=== PATIENT | male | born 1945 | race Caucasian/White ===

== ENCOUNTER 2017-08-28 09:41 | Observation (INO) | payer OTHER ==
[2017-08-28] VITALS (14 sets, daily range): BP systolic 119–147; BP diastolic 68–97
[~2017-08-28] VITALS: Ht 172.7 cm; Wt 73.7 kg
[~2017-08-28 09:41] MED LIST: ALPR.25T PO; ALPR0.2550 PO; ASP325T PO; CYCL10TA9 PO; HERBAL LAX; PNT40TEC PO; PRD20T PO; Z-QUIL; elavil
--- OUTSIDE RECORDS SUMMARY | 2017-08-28 09:45 | XMS REPORT | Continuity of Care Document ---
Author Author [facility] Organization [facility] Address Unknown Phone Unavailable Allergies Active Description Code Type Severity Reaction Onset Reported/Identified Relationship to Patient Clinical Status Yes No Known Drug Allergies [id number] Drug Allergy Unknown N/ A 06/03/2012 Medications Problems Date Dx Coded Attending Type Code Diagnosis Diagnosed By 06/03/2012 Ot V76.51 SCREEN MAL NEOP-COLON 07/19/2012 Ot 724.2 LUMBAGO 10/21/2012 Ot 272.4 HYPERLIPIDEMIA NEC/NOS 10/21/2012 Ot 308.0 STRESS REACT, EMOTIONAL 10/21/2012 Ot 414.01 CORONARY ATHEROSCLEROSIS OF [place] CORON 10/21/2012 Ot 531.90 STOMACH ULCER NOS 10/21/2012 Ot 786.59 CHEST PAIN NEC 10/21/2012 Ot 794.31 ABNORM ELECTROCARDIOGRAM 10/21/2012 Ot V58.66 LONG-TERM (CURRENT) USE OF ASPIRIN 12/02/2012 Ot 537.1 GASTRIC DIVERTICULUM 05/12/2016 Ot 724.2 LUMBAGO 05/12/2016 Ot 959.19 OTH INJURY OF OTHER SITES OF TRUNK 05/12/2016 Ot E000.8 OTHER EXTERNAL CAUSE STATUS 05/12/2016 Ot E849.0 ACCIDENT IN HOME 05/12/2016 Ot E928.9 ACCIDENT NOS 05/12/2016 Ot 724.3 SCIATICA 05/12/2016 Ot V72.84 EXAM PRE-OPERATIVE NOS 05/12/2016 Ot V72.84 EXAM PRE-OPERATIVE NOS 05/12/2016 JENNIFFER BURNETT MD Ot 721.3 LUMBOSACRAL SPONDYLOSIS 05/12/2016 JENNIFFER BURNETT MD Ot 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 Visit Date/Time Discharge Status Pt. Type Provider Facility Loc./Unit Complaint [id number] 01/29/2014 12:47:00 2013 23:59:59 CLS Outpatient HORTENCIA RUSSELL, JENNIFFER Haji [facility] RAD LOW BACK PAIN WITH LEFT LOWER EXT RIDICULAR PAIN [id number] 08/28/2017 09:42:00 ACT Emergency ESTHER RUSSELL , RUTH Maynard [facility] ER STROKE/FALL [id number] 12/02/2012 06:35:00 Document Registration [id number] 11/30/2012 07:44:00 Document Registration [id number] 10/18/2012 21:00:00 Document Registration [id number] 07/19/2012 08:22:00 Document Registration [id number] 06/03/2012 07:00:00 Document Registration [id number] 06/02/2012 09:47:00 Document Registration [id number] 09/09/2011 10:20:00 Document Registration [id number] 07/15/2011 14:25:00 Document Registration
[2017-08-28 09:58] LABS: BASOPHILS % (AUTO) 0 % (0-10); EOSINOPHILS # (AUTO) 0.3 10^3/uL (0.0-0.3); EOSINOPHILS % (AUTO) 3 % (0-10); LYMPHOCYTES # (AUTO) 2.1 X 10^3 (1.0-4.0); LYMPHOCYTES % (AUTO) 25 % (12-44); MEAN CORPUSCULAR HEMOGLOBIN 31 PG (25-34); MEAN CORPUSCULAR HGB CONC 34 G/DL (32-36); MEAN CORPUSCULAR VOLUME 91 FL (80-99); MEAN PLATELET VOLUME 9.1 FL (7.4-10.4); MONOCYTES # (AUTO) 0.6 X 10^3 (0.0-1.0); MONOCYTES % (AUTO) 7 % (0-12); NEUTROPHILS # (AUTO) 5.5 X 10^3 (1.8-7.8); NEUTROPHILS % (AUTO) 65 % (42-75); PLATELET COUNT 297 10^3/uL (130-400); RED BLOOD COUNT 4.43 10^6/uL (4.35-5.85); RED CELL DISTRIBUTION WIDTH 11.9 % (10.0-14.5); WHITE BLOOD COUNT 8.5 10^3/uL (4.3-11.0)
[2017-08-28 10:02] LABS: PROTHROMBIN TIME PATIENT 13.4 SEC (12.2-14.7)
--- NOTE | 2017-08-28 10:10 | Diagnostic Imaging Report ---
EXAM: CT HEAD WO-R/O STROKE INDICATION: Right-sided weakness. Facial droop. COMPARISON: None. FINDINGS: Subtle low attenuation changes and loss of the hoffman white differentiation in the left occipital lobe. No intracranial hemorrhage. No hydrocephalus, mass effect or extra-axial fluid collections. The visualized paranasal sinuses and mastoids are clear. No acute osseous findings. IMPRESSION: Low-attenuation and loss of the hoffman white differentiation in the left occipital lobe suspicious for an acute or subacute infarct. No intracranial hemorrhage. Findings discussed with Dr. Clint Curtis at 10:02 AM on 08/28/2017. Dictated by: Dictated on workstation # [id number]
--- NOTE | 2017-08-28 10:10 | Diagnostic Imaging Report ---
EXAM: CHEST 1 VIEW, AP/PA ONLY INDICATION: Right-sided weakness. Facial droop. COMPARISON: Chest radiograph 10/18/2012. FINDINGS: Normal heart size and pulmonary vascularity. No focal pulmonary opacity, pleural effusion or pneumothorax. No acute osseous findings. No significant change. IMPRESSION: No acute cardiopulmonary findings. Dictated by: Dictated on workstation # [id number]
[2017-08-28 10:13] LABS: ALANINE AMINOTRANSFERASE 18 U/L (0-55); ALBUMIN 4.2 GM/DL (3.2-4.5); ANION GAP 12 MMOL/L (5-14); ASPARTATE AMINO TRANSFERASE 20 U/L (5-34); BILIRUBIN,TOTAL 0.4 MG/DL (0.1-1.0); BLOOD UREA NITROGEN 22 MG/DL (7-18); BUN/CREATININE RATIO 17; CALCIUM 9.4 MG/DL (8.5-10.1); CARBON DIOXIDE 23 MMOL/L (21-32); CHLORIDE 104 MMOL/L (98-107); CREATININE SERUM 1.26 MG/DL (0.60-1.30); GFR ESTIMATED 56; GLUCOSE 101 MG/DL (70-105); POTASSIUM 4.7 MMOL/L (3.6-5.0); SODIUM 139 MMOL/L (135-145); TOTAL PROTEIN 7.7 GM/DL (6.4-8.2)
[2017-08-28] MEDS ORDERED: NS IV 1000 ML 1,000 ML IV ONE (10:16)
[2017-08-28 10:19] LABS: TROPONIN I < 0.30 NG/ML (<0.30)
[2017-08-28] MEDS ORDERED: CATHETER FLUSH 10 ML SYR IV PRN (10:30)
[2017-08-28] MEDS ORDERED: IOHEXOL 350 MG/ML 100 ML (OMNIPAQUE 350) VIAL IV ONE (10:30)
[2017-08-28] MEDS ORDERED: NS 100 ML (IVPB) BAG IV ONE (10:30)
--- NOTE | 2017-08-28 11:41 | Diagnostic Imaging Report ---
PROCEDURE: CT angiography of the head and CT angiography of the neck with and without contrast. TECHNIQUE: Contiguous noncontrast images were obtained from the skull base through the vertex. After intravenous contrast administration, helical CT angiography of the neck was performed. Source data was reformatted into multiple MIP projections. Delayed post contrast acquisition was also obtained. DATE: August 28, 2017. INDICATION: 72-year-old male, left-sided weakness, facial droop. COMPARISON: CT head August 28, 2017. FINDINGS: There is no identified abnormal intracranial enhancement. There is no pronounced mass effect or midline shift. There is no identified abnormal extra-axial fluid collection. The left common carotid artery is patent. The left internal carotid artery is patent and without stenosis. There are calcifications of the cavernous segment of the left internal carotid artery. There are calcifications of the proximal left anterior cerebral artery. The left anterior cerebral artery is patent. The left middle cerebral artery is patent. The right anterior cerebral artery is patent. There does appear to be a patent anterior communicating artery. There is an abrupt cutoff of contrast opacification of the right middle cerebral artery prior to its bifurcation. There is filling of the more distal aspects of the right middle cerebral artery relating to collateral flow. This likely relates to an area of occlusive thrombus. There are calcifications in the cavernous segment of the right internal carotid artery. The right internal carotid artery is patent without significant stenosis. The right common carotid artery is patent. The left vertebral artery is directly arising off the aortic arch. The left vertebral artery is patent. The basilar artery is patent. The right and left posterior cerebral arteries are patent. The right and left posterior inferior cerebellar arteries are patent. The right vertebral artery is patent and conventional in origin. The visualized portions of the lungs are clear. IMPRESSION: 1. Short segment occlusive thrombus in the right middle cerebral artery just prior to its bifurcation. There is opacification of the more distal aspects of the right middle cerebral artery relating to collateral flow. 2. Additional intracranial vasculature is patent. 3. No carotid stenosis. 4. No identified aneurysm. Dr. Curtis was notified by telephone of the above findings at 1129 hours on August 28, 2017 and acknowledged receipt of this critical result. Dictated by: Dictated on workstation # [id number]
[2017-08-28] MEDS ORDERED: ASPIRIN 325 MG (5 GR) TABLET PO ONE (11:45)
--- NOTE | 2017-08-28 12:02 | ED Neurological Problem ---
General Chief Complaint: Neuro-Stroke Like Symptoms Stated Complaint: STROKE/FALL Nursing Triage Note: TO ED PER EMS WITH POSSIBLE STROKE . PATIENT FELT LIKE HE GOT OUT OF BED AT 715 WENT TO BATHROOM HAD PROBLEMS GETTING OFF STOOL STOOD UP AND FELL AGAINST WALL . FOUND HIM AT 0845 WITH SLURRING OF SPEECH. AND FACIL Nursing Sepsis Screen: No Definite Risk Source: patient Exam Limitations: no limitations History of Present Illness Time seen by provider: 09:42 Initial Comments This 72-year-old gentleman presents to the emergency room via EMS with strokelike symptoms with last known well time 07:15. He got up to go to the restroom and while in the restroom developed left-sided weakness and lowered himself to the floor without injury. EMS reports he had profound left facial droop and loss of planning management it specialist on the left side upon their assessment. Upon arrival to the emergency room his symptoms are minor. A stroke activation has been paged. Patient has relatively little health history. He has history of prior treatment for anxiety and he has a mild essential tremor. Allergies and Home Medications Allergies Coded Allergies: No Known Drug Allergies (Unverified , 06/03/12) Home Medications Alprazolam 0.25 Mg Tab.rapdis, 1 EACH PO HS, (Reported) Pantoprazole Sod 40 Mg Tab, 40 MG PO DAILY AM, (Reported) [Herbal Lax] , (Reported) PRN FOR CONSTIPATION [Z-Quil] , (Reported) PRN FOR INSOMNIA Constitutional: no symptoms reported Eyes: No Symptoms Reported Ears, Nose, Mouth, Throat: no symptoms reported Respiratory: no symptoms reported Cardiovascular: no symptoms reported Gastrointestinal: no symptoms reported Genitourinary: no symptoms reported Musculoskeletal: no symptoms reported Skin: no symptoms reported Psychiatric/Neurological: See HPI Endocrine: No Symptoms Reported Past Ggffjqt-Bixkez-Qahyoi Hx Patient Social History Alcohol Use: Denies Use Recreational Drug Use: No Smoking Status: Never a Smoker Contact w/Someone Who Travel: No Recent Infectious Disease Expo: No Immunizations Up To Date Date of Pneumonia Vaccine: Nov 24, 2010 Date of Influenza Vaccine: Jul 04, 2012 Surgeries History of Surgeries: Yes (HERNIA REPAIR 10 YRS AGO) Surgeries: Abdominal ([id number]) Respiratory History of Respiratory Disorde: No Cardiovascular History of Cardiac Disorders: No Neurological History of Neurological Disord: Yes (essential tremor) Reproductive System Hx Reproductive Disorders: No Sexually Transmitted Disease: No Gastrointestinal History of Gastrointestinal Di: No Musculoskeletal History of Musculoskeletal Dis: No Endocrine History of Endocrine Disorders: No HEENT History of HEENT Disorders: No Cancer History of Cancer: No Psychosocial History of Psychiatric Problem: No Integumentary History of Skin or Integumenta: No Physical Exam Vital Signs Vital Sign - Last 12Hours 08/28/17 09:41 Temp 98.0 Pulse 65 Resp 18 B/P (MAP) 131/65 (87) Pulse Ox 98 O2 Delivery Room Air Capillary Refill : Less Than 3 Seconds General Appearance: WD/WN, no apparent distress HEENT: PERRL/EOMI, normal ENT inspection, pharynx normal Neck: normal inspection Respiratory: lungs clear, normal breath sounds, no respiratory distress, no accessory muscle use Cardiovascular: regular rate, rhythm, no edema, no murmur Gastrointestinal: normal bowel sounds, non tender, soft Extremities: normal inspection, no pedal edema Neurologic/Psychiatric: no motor/sensory deficits, alert, normal mood/affect, oriented x 3, facial droop (minimal left sided mouth weakness with smile) Crainal Nerves: normal hearing, normal speech, PERRL Coordination/Gait: normal finger to nose, normal gait Motor/Sensory: no motor deficit, no sensory deficit, no pronator drift Skin: normal color, warm/dry Stroke Onset of Symptoms Date of Onset of Symptoms: Aug 28, 2017 NIH Stroke Scale Assessment Select: Post CT Level of Consciousness: 0=Alert (0), Level of Consciousness- Questions: 0=Answers both month/age (0), LOC Commands: 0=Performs both tasks (0) , Gaze: Normal (0), Visual Lam: 0=No visual loss (0), Facial Movement ( Facial Paresis): 0=Normal symmetrical mnt (0), Motor Function-Arms Right: 0=No drift (0), Motor Function-Arms Left: 0=No drift (0), Motor Function-Legs Right: 0=No drift (0), Motor Function-Legs Left: 0=No drift (0), Limb Ataxia: 0=Absent (0), Sensory: 0=Normal:no loss (0), Best Language: 0=No aphasia (0), Dysarthria : 0=Normal (0), Extinction & Inattention: 0=No abnormality (0), Total: 0 Stroke Thrombolytic Exclusion Age 18 or Over: Yes Intracranial Neoplasm/Aneurysm: No Progress/Results/Core Measures Results/Orders Lab Results Laboratory Tests Test 08/28/17 09:44 08/28/17 10:19 Range/Units White Blood Count 8.5 4.3-11.0 10^3/uL Red Blood Count 4.43 4.35-5.85 10^6/uL Hemoglobin 13.8 13.3-17.7 G/DL Hematocrit 41 40-54 % Mean Corpuscular Volume 91 80-99 FL Mean Corpuscular Hemoglobin 31 25-34 PG Mean Corpuscular Hemoglobin Concent 34 32-36 G/DL Red Cell Distribution Width 11.9 10.0-14.5 % Platelet Count 297 130-400 10^3/uL Mean Platelet Volume 9.1 7.4-10.4 FL Neutrophils (%) (Auto) 65 42-75 % Lymphocytes (%) (Auto) 25 12-44 % Monocytes (%) (Auto) 7 0-12 % Eosinophils (%) (Auto) 3 0-10 % Basophils (%) (Auto) 0 0-10 % Neutrophils # (Auto) 5.5 1.8-7.8 X 10^3 Lymphocytes # (Auto) 2.1 1.0-4.0 X 10^3 Monocytes # (Auto) 0.6 0.0-1.0 X 10^3 Eosinophils # (Auto) 0.3 0.0-0.3 10^3/uL Basophils # (Auto) 0.0 0.0-0.1 10^3/uL Prothrombin Time 13.4 12.2-14.7 SEC INR Comment 1.0 0.8-1.4 Activated Partial Thromboplast Time 26 24-35 SEC D-Dimer 0.60 H 0.00-0.49 UG/ML Sodium Level 139 135-145 MMOL/L Potassium Level 4.7 3.6-5.0 MMOL/L Chloride Level 104 98-107 MMOL/L Carbon Dioxide Level 23 21-32 MMOL/L Anion Gap 12 5-14 MMOL/L Blood Urea Nitrogen 22 H 7-18 MG/DL Creatinine 1.26 0.60-1.30 MG/DL Estimat Glomerular Filtration Rate 56 BUN/Creatinine Ratio 17 Glucose Level 101 70-105 MG/DL Calcium Level 9.4 8.5-10.1 MG/DL Total Bilirubin 0.4 0.1-1.0 MG/DL Aspartate Amino Transf (AST/SGOT) 20 5-34 U/L Alanine Aminotransferase (ALT/SGPT) 18 0-55 U/L Alkaline Phosphatase 57 40-136 U/L Troponin I < 0.30 <0.30 NG/ML Total Protein 7.7 6.4-8.2 GM/DL Albumin 4.2 3.2-4.5 GM/DL Glucometer 85 70-110 MG/DL My Orders Orders - CLINT CURTIS MD Cbc With Automated Diff (08/28/17 09:48) Protime With Inr (08/28/17 09:48) Partial Thromboplastin Time (08/28/17 09:48) Comprehensive Metabolic Panel (08/28/17 09:48) Fibrin Degradation Products (08/28/17 09:48) Troponin I (08/28/17 09:48) Ua Culture If Indicated (08/28/17 09:48) Chest 1 View, Ap/Pa Only (08/28/17 09:48) Ekg Tracing (08/28/17 09:48) Nothing By Mouth (08/28/17 Lunch) Accucheck Stat ONCE (08/28/17 09:48) Saline Lock/Iv-Start (08/28/17 09:48) Saline Lock/Iv-Start (08/28/17 09:48) Vital Signs - Stroke Q15M (08/28/17 09:48) Ct Head Wo-R/O Stroke (08/28/17 09:48) O2 (08/28/17 09:48) Intake & Output 06,14,22 (08/28/17 09:48) Monitor-Rhythm Ecg Trace Only (08/28/17 09:48) Dysphagia Screening Tool (08/28/17 09:48) Ct Angio Head/Neck (08/28/17 10:16) Ns Iv 1000 Ml (Sodium Chloride 0.9%) (08/28/17 10:16) Iohexol Injection (Omnipaque 350 Mg/Ml 1 (08/28/17 10:30) Sodium Chloride Flush (Catheter Flush Sy (08/28/17 10:30) Ns (Ivpb) (Sodium Chloride 0.9% Ivpb Bag (08/28/17 10:30) Pharmacy Communication (Pharmacy Communi (08/28/17 10:21) Ekg Tracing (08/28/17 10:39) Aspirin Tablet (Aspirin Tablet) (08/28/17 11:45) Medications Given in ED Current Medications Medications Dose Ordered Sig/Farhan Route Start Time Stop Time Status Last Admin Dose Admin Aspirin 325 mg ONCE ONCE PO 08/28/17 11:45 08/28/17 11:46 DC 08/28/17 13:01 325 MG Iohexol 100 ml ONCE ONCE IV 08/28/17 10:30 08/28/17 10:31 DC 08/28/17 10:57 85 ML Sodium Chloride 10 ml NEEDED PRN IV 08/28/17 10:30 08/28/17 10:57 10 ML Sodium Chloride 100 ml ONCE ONCE IV 08/28/17 10:30 08/28/17 10:31 DC 08/28/17 10:57 80 ML Sodium Chloride 1,000 ml @ 0 mls/hr Q0M ONCE IV 08/28/17 10:16 08/28/17 10:18 DC 08/28/17 14:03 1,000 MLS/HR Vital Signs/I&O Vital Sign - Last 12Hours 08/28/17 08/28/17 09:41 11:31 Temp 98.0 Pulse 65 61 Resp 18 18 B/P (MAP) 131/65 (87) 136/78 (97) Pulse Ox 98 97 O2 Delivery Room Air Room Air Blood Pressure Mean: 97 Point of Care Testing Finger Stick Blood Glucose: 85 Blood Glucose Action Taken: DR NOTIFIED Progress Note : Progress Note Stroke activation was paged upon patient arrival. Symptoms were already markedly improving and NIH stroke score was one on initial assessment. There was low-attenuation with loss of hoffman-white differentiation in the left occipital lobe. This indicated possible acute or subacute stroke. Because there is already evidence of tissue damage, patient is not a TPA candidate especially since his symptoms are rapidly improving. Case was discussed with Dr. Milan who agreed patient is not a TPA candidate. Further workup was pursued with a CT angiogram. This revealed a right M2 MCA stroke just before the bifurcation. I again consulted Dr. Milan. He advised that helicopter transfer and invasive procedures are not worth the risk in this gentleman his symptoms have now resolved. He advised admission overnight for observation at our facility. Aspirin was ordered prior to admission. Patient passed his dysphagia screen. His first NH score was 1 for facial weakness. The second and third NIH scores were both zero. ECG Initial ECG Impression Date: Aug 28, 2017 Initial ECG Impression Time: 10:12 Initial ECG Rate: 57 Initial ECG Rhythm: Normal Sinus Initial ECG Intervals: Normal Initial ECG Impression: Normal Comment Normal sinus rhythm with no ST elevation or depression. Artifact on the baseline is deceiving and a second EKG was per him to definitively rule out atrial fibrillation. No abnormal intervals or axis deviation. Diagnostic Imaging Diagonstic Imaging: CT Plain Films/CT/US/NM/MRI: head Comments CT scans viewed by me and report reviewed. Discussed with the radiologist. There is area of low attenuation within the left occipital lobe suspicious for subacute stroke. NAME: ROBYN HASKINS MED REC#: [id number] PT STATUS: ADM Radhika : 1945 PHYSICIAN: CLINT CURTIS MD ADMIT DATE: 08/28/17/ICU Signed Date of Exam: 08/28/17 CT HEAD WO-R/O STROKE EXAM: CT HEAD WO-R/O STROKE INDICATION: Right-sided weakness. Facial droop. COMPARISON: None. FINDINGS: Subtle low attenuation changes and loss of the hoffman white differentiation in the left occipital lobe. No intracranial hemorrhage. No hydrocephalus, mass effect or extra-axial fluid collections. The visualized paranasal sinuses and mastoids are clear. No acute osseous findings. IMPRESSION: Low-attenuation and loss of the hoffman white differentiation in the left occipital lobe suspicious for an acute or subacute infarct. No intracranial hemorrhage. Findings discussed with Dr. Clint Curtis at 10:02 AM on 08/28/2017. Dictated by: Dictated on workstation # [id number] Dict: 08/28/17 1000 Trans: 08/28/171735 Interpreted by: LANDON LALA MD Electronically signed by: LANDON LALA MD 08/28/171735 Diagonstic Imaging: Xray Plain Films/CT/US/NM/MRI: chest Comments Chest x-ray viewed by me and report reviewed. See report below: NAME: ROBYN HASKINS MED REC#: [id number] PT STATUS: ADM Radhika : 1945 PHYSICIAN: CLINT CURTIS MD ADMIT DATE: 08/28/17/ICU Signed Date of Exam: 08/28/17 CHEST 1 VIEW, AP/PA ONLY EXAM: CHEST 1 VIEW, AP/PA ONLY INDICATION: Right-sided weakness. Facial droop. COMPARISON: Chest radiograph 10/18/2012. FINDINGS: Normal heart size and pulmonary vascularity. No focal pulmonary opacity, pleural effusion or pneumothorax. No acute osseous findings. No significant change. IMPRESSION: No acute cardiopulmonary findings. Dictated by: Dictated on workstation # [id number] Dict: 08/28/17 1007 Trans: 08/28/17 1734 Interpreted by: LANDON LALA MD Electronically signed by: LANDON LALA MD 08/28/17 1734 Diagonstic Imaging: CT Plain Films/CT/US/NM/MRI: other (Angiogram of head and neck) Comments CT angiogram of the head and neck viewed by me and report reviewed. Discussed with the radiologist. See report below: NAME: ROBYN HASKINS [facility] REC#: [id number] PT STATUS: ADM Radhika : 1945 PHYSICIAN: CLINT CURTIS MD ADMIT DATE: 08/28/17/ICU Signed Date of Exam: 08/28/17 CT ANGIO HEAD/NECK PROCEDURE: CT angiography of the head and CT angiography of the neck with and without contrast. TECHNIQUE: Contiguous noncontrast images were obtained from the skull base through the vertex. After intravenous contrast administration, helical CT angiography of the neck was performed. Source data was reformatted into multiple MIP projections. Delayed post contrast acquisition was also obtained. DATE: August 28, 2017. INDICATION: 72-year-old male, left-sided weakness, facial droop. COMPARISON: CT head August 28, 2017. FINDINGS: There is no identified abnormal intracranial enhancement. There is no pronounced mass effect or midline shift. There is no identified abnormal extra-axial fluid collection. The left common carotid artery is patent. The left internal carotid artery is patent and without stenosis. There are calcifications of the cavernous segment of the left internal carotid artery. There are calcifications of the proximal left anterior cerebral artery. The left anterior cerebral artery is patent. The left middle cerebral artery is patent. The right anterior cerebral artery is patent. There does appear to be a patent anterior communicating artery. There is an abrupt cutoff of contrast opacification of the right middle cerebral artery prior to its bifurcation. There is filling of the more distal aspects of the right middle cerebral artery relating to collateral flow. This likely relates to an area of occlusive thrombus. There are calcifications in the cavernous segment of the right internal carotid artery. The right internal carotid artery is patent without significant stenosis. The right common carotid artery is patent. The left vertebral artery is directly arising off the aortic arch. The left vertebral artery is patent. The basilar artery is patent. The right and left posterior cerebral arteries are patent. The right and left posterior inferior cerebellar arteries are patent. The right vertebral artery is patent and conventional in origin. The visualized portions of the lungs are clear. IMPRESSION: 1. Short segment occlusive thrombus in the right middle cerebral artery just prior to its bifurcation. There is opacification of the more distal aspects of the right middle cerebral artery relating to collateral flow. 2. Additional intracranial vasculature is patent. 3. No carotid stenosis. 4. No identified aneurysm. Dr. Curtis was notified by telephone of the above findings at 1129 hours on August 28, 2017 and acknowledged receipt of this critical result. Dictated by: Dictated on workstation # [id number] Dict: 08/28/17 1120 Trans: 08/28/17 1214 Interpreted by: SHANITA DENNIS MD Electronically signed by: SHANITA DENNIS MD 08/28/17 1214 Departure Impression Impression: Primary Impression: Acute right MCA stroke Disposition: ADMITTED INPATIENT Condition: Improved Admissions Decision to Admit Reason: Admit from ER (General) Departure-Patient Inst. Decision time for Depature: 09:50 Referrals: JENNIFFER BURNETT MD (PCP) Primary Care Physician Copy Copies To 1: JENNIFFER BURNETT MD, JOSHUA T MD Aug 28, 2017 12:02
--- NOTE | 2017-08-28 12:35 | History & Physical-Hospitalist ---
HPI History of Present Illness: HPI/Chief Complaint Pt is a 72yoCm with no PMH who presented to the ER today for left sided facial droop. He reports he woke up at 715 this morning to go to the bathroom and when he went to stand up he felt lightheaded and fell to the floor. He was down until his found him at 845. That is when she and their daughter noticed the left facial droop and left sided weakness and prompted them to seek evaluation in the ER. Upon arrival here he was activated as a code stroke. He was found to have left occipital attenuation on CT head and R MCA occlusion. By the time of his arrival his symptoms had resolved and his NIH has remained 0. He reports he feels well now and back to normal. Source: patient, family Date Seen 08/28/17 Time Seen by Provider: 11:55 Attending Physician Judith Braun MD PCP Dung Ahmadi MD Referring Physician Date of Admission Aug 28, 2017 at 11:47 am Home Medications & Allergies Home Medications Reviewed patient Home Medication Reconciliation Form Allergies Allergies Coded Allergies No Known Drug Allergies (Unverified06/03/12) Past Uvyaulo-Gcalit-Ljkpoy Hx Patient Social History Marrital Status: Alcohol Use: Denies Use Recreational Drug Use: No Smoking Status: Never a Smoker Contact w/other who traveled: No Recent Infectious Disease Expo: No Immunizations Up To Date Date of Pneumonia Vaccine: Nov 24, 2010 Date of Influenza Vaccine: Jul 04, 2012 Surgeries Yes (HERNIA REPAIR 10 YRS AGO) Respiratory No Cardiovascular No Neurological No Reproductive System Hx Reproductive Disorders: No Sexually Transmitted Disease: No Gastrointestinal No Musculoskeletal Yes (TREMORS) Endocrine History of Endocrine Disorders: No Cancer No Psychosocial History of Psychiatric Problem: No Integumentary History of Skin or Integumenta: No Family Medical History Significant Family History: No Pertinent Family Hx Review of Systems Constitutional: No chills, No fever EENTM: No blurred vision, No double vision, No nose congestion, No throat pain Respiratory: No cough, No dyspnea on exertion, No short of breath Cardiovascular: No chest pain, No edema, No palpitations Gastrointestinal: No abdominal pain, No constipation, No diarrhea, No nausea, No vomiting Genitourinary: No dysuria, No frequency Musculoskeletal: No joint pain, No muscle pain Skin: No lesions, No rash Psychiatric/Neurological: Denies Headache, Denies Numbness, Denies Tingling, Weakness (LEFT SIDED WEAKNESS), Other (FACIAL DROOP- NOW RESOLVED) Physical Exam Physical Exam Vital Signs Vital Sign - Last 12Hours 08/28/17 09:41 Temp 98.0 Pulse 65 Resp 18 B/P (MAP) 131/65 (87) Pulse Ox 98 O2 Delivery Room Air Capillary Refill : Less Than 3 Seconds General Appearance: No Apparent Distress, WD/WN HEENT: PERRL/EOMI, Moist Mucous Membranes Neck: Non Tender, Supple Respiratory: Lungs Clear, No Respiratory Distress Cardiovascular: Regular Rate, Rhythm, No Murmur Gastrointestinal: Normal Bowel Sounds, Non Tender, Soft Extremity: Normal Capillary Refill, No Calf Tenderness Neurologic/Psychiatric: Alert, Oriented x3, No Motor/Sensory Deficits, Normal 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 Short segment occlusive thrombus in the right middle cerebral artery just prior to its bifurcation. There is opacification of the more distal aspects of the right middle cerebral artery relating to collateral flow. 2. Additional intracranial vasculature is patent. 3. No carotid stenosis. 4. No identified aneurysm. Dr. Curtis was notified by telephone of the above findings at 1129 hours on August 28, 2017 and acknowledged receipt of this critical result. CT HEAD WO-R/O STROKE INDICATION: Right-sided weakness. Facial droop. COMPARISON: None. FINDINGS: Subtle low attenuation changes and loss of the hoffman white differentiation in the left occipital lobe. No intracranial hemorrhage. No hydrocephalus, mass effect or extra-axial fluid collections. The visualized paranasal sinuses and mastoids are clear. No acute osseous findings. IMPRESSION: Low-attenuation and loss of the hoffman white differentiation in the left occipital lobe suspicious for an acute or subacute infarct. No intracranial hemorrhage. Findings discussed with Dr. Clint Curtis at 10:02 AM on 08/28/2017. Assessment/Plan Admission Diagnosis Acute MCA Stroke Diagnosis/Problems Diagnosis/Problems (1) Acute right MCA stroke Status: Acute Assessment & Plan: Acute occlusion noted Dr Child consulted [facility] Stroke specialists to review his imaging They recommend no TPA as now asymptomatic along with concerns for the left sided occipital changes Dr Meneses (from [facility]) also did not recommend transfer for clot retrieval as pt asymptomatic per discussions with ER ASA given in ED Start Statin tonight PT/OT/CAMP NURSE ordered Does not smoke BP WNL Echo ordered Cardiology consulted Clinical Quality Measures Stroke: Date of last known well: Aug 28, 2017 Quality Measures-Stroke Pt: Antithrombotic therapy by EOD 2, Assessed for Rehab (PT,OT,ARU,etc), Lipid panel ordered JUDITH BRAUN MD Aug 28, 2017 12:35 pm
[2017-08-28] MEDS ORDERED: ENOXAPARIN 40 MG/0.4 ML (LOVENOX) SYR SC SCH (13:15)
[2017-08-28] MEDS ORDERED: ATORVASTATIN 80 MG (LIPITOR) TABLET PO SCH (21:00)
[2017-08-29] VITALS (10 sets, daily range): BP systolic 99–134; BP diastolic 63–84
[2017-08-29] MEDS ORDERED: ACETAMINOPHEN 500 MG TAB (TYLENOL) PO ONE (00:30)
[2017-08-29 05:11] LABS: PROTHROMBIN TIME PATIENT 13.4 SEC (12.2-14.7)
[2017-08-29 05:26] LABS: ALANINE AMINOTRANSFERASE 13 U/L (0-55); ALBUMIN 3.6 GM/DL (3.2-4.5); ANION GAP 11 MMOL/L (5-14); ASPARTATE AMINO TRANSFERASE 15 U/L (5-34); BILIRUBIN,TOTAL 0.4 MG/DL (0.1-1.0); BLOOD UREA NITROGEN 18 MG/DL (7-18); BUN/CREATININE RATIO 17; CALCIUM 8.3 MG/DL (8.5-10.1); CARBON DIOXIDE 21 MMOL/L (21-32); CHLORIDE 108 MMOL/L (98-107); CHOLESTEROL 156 MG/DL (< 200); CREATININE SERUM 1.05 MG/DL (0.60-1.30); DIRECT LDL 96 MG/DL (1-129); GFR ESTIMATED > 60; GLUCOSE 94 MG/DL (70-105); POTASSIUM 4.1 MMOL/L (3.6-5.0); SODIUM 140 MMOL/L (135-145); TOTAL PROTEIN 6.3 GM/DL (6.4-8.2); TRIGLYCERIDES 91 MG/DL (<150); VLDL CHOLESTEROL 18 MG/DL (5-40)
--- NOTE | 2017-08-29 09:26 | Consultation-Cardiology ---
HPI-Cardiology Cardiology Consultation Date of Consultation 08/29/17 Date of Admission Time Seen by Provider: 09:20 Indication: acute CVA HPI 72 years old gentleman with history of mild coronary artery disease per cardiac catheterization 2012. Was in his usual state of health until yesterday when he went to the bathroom, he was trying to get up where he couldn't he fell to the side had left sided weakness and facial droop, was in the bathroom for about an hour was not able to call for help, and was found by his and daughter, had facial droop, EMS were called. By the time he arrived to the emergency room he was better and recovered. Overnight he was doing well, no residual weakness. Fairly concerned about his condition and the cause for his stroke. CT angiogram showed occlusive thrombus in the right middle cerebral artery of unknown source. He denied any chest pain, denied any palpitation, syncope or near syncopal episode, his sister had history of atrial fibrillation. Home Medications & Allergies Allergies: Coded Allergies: No Known Drug Allergies (Unverified , 06/03/12) Home Medication List Reviewed: Yes [id number]-[id number] Hx Patient Social History Marital Status: Alcohol Use: Denies Use Recreational Drug Use: No Smoking Status: Never a Smoker Recent Foreign Travel: No Recent Infectious Disease Expo: No Physical Abuse Screen: No Sexual Abuse: No Immunizations Up To Date Date of Pneumonia Vaccine: Aug 28, 2015 Date of Influenza Vaccine: Jul 19, 2017 Past Medical History past medical history as discussed below Family Medical History Significant Family History: No Pertinent Family Hx Family Medical Hx Sister has history of atrial fibrillation Constitutional: no symptoms reported, see HPI EENTM: see HPI, no symptoms reported Respiratory: see HPI, No cough, No dyspnea on exertion, No hemoptysis, No orthopnea, No phlegm, No short of breath, No stridor, No wheezing, No other Cardiovascular: see HPI, No chest pain, No edema, No Hx of Intervention, No palpitations, No syncope, No vascular heart diseas, No other Gastrointestinal: no symptoms reported, see HPI Genitourinary: no symptoms reported, see HPI Musculoskeletal: no symptoms reported, see HPI Skin: no symptoms reported, see HPI Psychiatric/Neurological: No Symptoms Reported, See HPI, Numbness, Paresthesia , Weakness Reviewed Test Results Reviewed Test Results Lab Laboratory Tests Test 12/9/17 09:44 08/28/17 10:19 08/29/17 04:30 Range/Units White Blood Count 8.5 4.3-11.0 10^3/uL Red Blood Count 4.43 4.35-5.85 10^6/uL Hemoglobin 13.8 13.3-17.7 G/DL Hematocrit 41 40-54 % Mean Corpuscular Volume 91 80-99 FL Mean Corpuscular Hemoglobin 31 25-34 PG Mean Corpuscular Hemoglobin Concent 34 32-36 G/DL Red Cell Distribution Width 11.9 10.0-14.5 % Platelet Count 297 130-400 10^3/uL Mean Platelet Volume 9.1 7.4-10.4 FL Neutrophils (%) (Auto) 65 42-75 % Lymphocytes (%) (Auto) 25 12-44 % Monocytes (%) (Auto) 7 0-12 % Eosinophils (%) (Auto) 3 0-10 % Basophils (%) (Auto) 0 0-10 % Neutrophils # (Auto) 5.5 1.8-7.8 X 10^3 Lymphocytes # (Auto) 2.1 1.0-4.0 X 10^3 Monocytes # (Auto) 0.6 0.0-1.0 X 10^3 Eosinophils # (Auto) 0.3 0.0-0.3 10^3/uL Basophils # (Auto) 0.0 0.0-0.1 10^3/uL Prothrombin Time 13.4 13.4 12.2-14.7 SEC INR Comment 1.0 1.0 0.8-1.4 Activated Partial Thromboplast Time 26 24-35 SEC D-Dimer 0.60 H 0.00-0.49 UG/ML Sodium Level 139 140 135-145 MMOL/L Potassium Level 4.7 4.1 3.6-5.0 MMOL/L Chloride Level 104 108 H 98-107 MMOL/L Carbon Dioxide Level 23 21 21-32 MMOL/L Anion Gap 12 11 5-14 MMOL/L Blood Urea Nitrogen 22 H 18 7-18 MG/DL Creatinine 1.26 1.05 0.60-1.30 MG/DL Estimat Glomerular Filtration Rate 56 > 60 BUN/Creatinine Ratio 17 17 Glucose Level 101 94 70-105 MG/DL Calcium Level 9.4 8.3 L 8.5-10.1 MG/DL Total Bilirubin 0.4 0.4 0.1-1.0 MG/DL Aspartate Amino Transf (AST/SGOT) 20 15 5-34 U/L Alanine Aminotransferase (ALT/SGPT) 18 13 0-55 U/L Alkaline Phosphatase 57 48 40-136 U/L Troponin I < 0.30 <0.30 NG/ML Total Protein 7.7 6.3 L 6.4-8.2 GM/DL Albumin 4.2 3.6 3.2-4.5 GM/DL Glucometer 85 70-110 MG/DL Triglycerides Level 91 <150 MG/DL Cholesterol Level 156 < 200 MG/DL LDL Cholesterol Direct 96 1-129 MG/DL VLDL Cholesterol 18 5-40 MG/DL HDL Cholesterol 44 40-60 MG/DL Physical Exam Vital Signs Vital Sign - Last 12Hours 08/28/17 09:41 Temp 98.0 Pulse 65 Resp 18 B/P (MAP) 131/65 (87) Pulse Ox 98 O2 Delivery Room Air Capillary Refill : Less Than 3 Seconds General Appearance: No Apparent Distress, WD/WN Eyes: Bilateral Eye Normal Inspection, Bilateral Eye PERRL, Bilateral Eye EOMI HEENT: PERRL/EOMI, TMs Normal, Normal ENT Inspection, Pharynx Normal Neck: Full Range of Motion, Normal Inspection, Non Tender, Supple, Carotid Bruit Respiratory: Chest Non Tender, Lungs Clear, Normal Breath Sounds, No Accessory Muscle Use, No Respiratory Distress Cardiovascular: Regular Rate, Rhythm, No Edema, No Gallop, No JVD, No Murmur, Normal Peripheral Pulses Gastrointestinal: Normal Bowel Sounds, No Organomegaly, No Pulsatile Mass, Non Tender, Soft Back: Normal Inspection, No CVA Tenderness, No Vertebral Tenderness Extremity: Normal Capillary Refill, Normal Inspection, Normal Range of Motion, Non Tender, No Calf Tenderness, No Pedal Edema Neurologic/Psychiatric: Alert, Oriented x3, No Motor/Sensory Deficits, Normal Mood/Affect Skin: Normal Color, Warm/Dry Lymphatic: No Adenopathy A/P-Cardiology Admission Diagnosis Acute CVA Coronary artery disease Family history of atrial fibrillation Assessment/Plan Acute CVA, right middle cerebral artery occlusion with a thrombus, unknown source, cryptogenic stroke. Monitored on telemetry overnight, did not show any arrhythmia except for frequent PVCs. Echocardiogram showed normal left ventricular size and function, ejection fraction 65-70 percent, PA pressure 25 mmHg. Had a long discussion with the patient and his family regarding the source of stroke, embolic versus atherosclerotic, and his condition it appear to be embolic. There is an increased risk of atrial fibrillation as a source. I recommended reveal device implantation. We will schedule it as an outpatient meanwhile he is maintained on aspirin. History of cardiac catheterization done in 2012 showing mild coronary artery disease nonobstructive disease. Continue to monitor as an outpatient Patient had life screen done for his carotid and legs and he was told it was normal. Lipid profile showed total cholesterol of 156, LDL 96, Triglyceride 91, LDL 44. We had a long discussion about diet control and exercise. Patient exercise daily with 2 miles walk. Family history of atrial fibrillation Clinical Quality Measures DVT/VTE Risk/Contraindication: Risk Factor Score Per Nursin RFS Level Per Nursing on Admit: 4+=Very High Stroke: Date of last known well: Aug 28, 2017 Quality Measures-Stroke Pt: Antithrombotic therapy by EOD 2, Assessed for Rehab (PT,OT,ARU,etc), Lipid panel ordered DANIELLE SHIPLEY MD Aug 29, 2017 09:26
--- NOTE | 2017-08-29 09:27 | Discharge Summary-Hospitalist ---
Diagnosis/Chief Complaint Date of Admission Aug 28, 2017 at 11:47 am Date of Discharge Discharge Date: Aug 29, 2017 Admission Diagnosis Acute MCA Stroke Discharge Diagnosis (1) Acute right MCA stroke Status: Acute Assessment & Plan: Acute occlusion noted Dr Child consulted [facility] Stroke specialists to review his imaging They recommend no TPA or anticoagulation as now asymptomatic along with concerns for the left sided occipital changes Dr Meneses (from [facility]) also did not recommend transfer for clot retrieval as pt asymptomatic per discussions with ER Continue ASA Statin ordered, patient unsure if he will start it PT/OT/CV/CVN CV TSC SYSTEM OPERATOR ordered Does not smoke BP WNL Echo- unremarkable Telemetry revealed only PVCs overnight Cardiology consulted Scheduled for outpatient loop recorder on Wednesday to further evaluation cryptogenic stroke Discharge Summary Consultations Cardiology- Dr Willis Discharge Physical Examination Allergies: Coded Allergies: No Known Drug Allergies (Unverified , 06/03/12) Vitals & I&Os Vital Signs Date Time Temp Pulse Resp B/P (MAP) Pulse Ox O2 Delivery O2 Flow Rate FiO2 08/29/17 10:25 56 17 134/84 95 Room Air 08/29/17 04:15 97.7 Hospital Course Pt presented to the ER for acute onset left facial droop and weakness. In evaluation in the ER it was revealed that he had an acute MCA occlusion. [facility] Stroke Center was contacted and given that his symptoms had completely resolved shortly after arrival they recommended no further intervention or TPA. He was started on ASA and statin while inpatient and will be discharged on these. Cardiology was consulted and will implant reveal device on 09/01 for further evaluation. He is to follow up with his PCP this week. Labs (last 24 hrs) Laboratory Tests 08/29/17 04:30: Prothrombin Time 13.4, INR Comment 1.0, Sodium Level 140, Potassium Level 4.1, Chloride Level 108H, Carbon Dioxide Level 21, Anion Gap 11, Blood Urea Nitrogen 18, Creatinine 1.05, Estimat Glomerular Filtration Rate > 60, BUN/Creatinine Ratio 17, Glucose Level 94, Calcium Level 8.3L, Total Bilirubin 0.4, Aspartate Amino Transf (AST/SGOT) 15, Alanine Aminotransferase (ALT/SGPT) 13, Alkaline Phosphatase 48, Total Protein 6.3L, Albumin 3.6, Triglycerides Level 91, Cholesterol Level 156, LDL Cholesterol Direct 96, VLDL Cholesterol 18, HDL Cholesterol 44 Pending Labs Laboratory Tests 08/29/17 04:30: Prothrombin Time 13.4, INR Comment 1.0, Sodium Level 140, Potassium Level 4.1, Chloride Level 108, Carbon Dioxide Level 21, Anion Gap 11, Blood Urea Nitrogen 18, Creatinine 1.05, Estimat Glomerular Filtration Rate > 60, BUN/Creatinine Ratio 17, Glucose Level 94, Calcium Level 8.3, Total Bilirubin 0.4, Aspartate Amino Transf (AST/SGOT) 15, Alanine Aminotransferase (ALT/SGPT) 13, Alkaline Phosphatase 48, Total Protein 6.3, Albumin 3.6, Triglycerides Level 91, Cholesterol Level 156, LDL Cholesterol Direct 96, VLDL Cholesterol 18, HDL Cholesterol 44 Discussion & Recommendations I recommended statin for secondary prevention as LDL >70 (LDL 96). He would like to wait until he sees Dr. Willis again to decide whether he will start it. Discharge Home Medications: Active Scripts Active Atorvastatin Calcium 40 Mg Tablet 40 Mg PO DAILY 30 Days Aspirin EC (Aspirin) 325 Mg Tablet. 325 Mg PO Q24H Reported Alprazolam 0.25 Mg Tab.rapdis 1 Each PO HS Protonix Tab (Pantoprazole Sod) 40 Mg Tab 40 Mg PO DAILY AM [Z-Quil] PRN FOR INSOMNIA [Herbal Lax] PRN FOR CONSTIPATION Instructions to patient/family Please see electronic discharge instructions given to patient. Clinical Quality Measures DVT/VTE Risk/Contraindication: Risk Factor Score Per Nursin RFS Level Per Nursing on Admit: 4+=Very High Stroke: Date of last known well: Aug 28, 2017 Quality Measures-Stroke Pt: Antithrombotic therapy by EOD 2, Assessed for Rehab (PT,OT,ARU,etc), D/C'd on Antithrombotic, D/C'd on statin (for LDL>=70), Lipid panel ordered Copy Copies To 1: JENNIFFER BURNETT MD, KATELYN M MD Aug 29, 2017 09:27
[2017-08-29] MEDS ORDERED: ASPI325T32 PO (09:41)
[2017-08-29] MEDS ORDERED: ATOR40TA70 PO (09:41)
[2017-08-29] MEDS ORDERED: ASPIRIN E.C. 325 MG (ECOTRIN) TABLET PO SCH (13:15)
--- NOTE | 2017-08-30 08:21 | Speech Therapy Progress Note ---
Therapy Progress Note Speech evaluation received and chart reviewed. The patient discharged prior to evaluation. ADRIEL GARSIA Aug 30, 2017 08:21
[2017-08-30] MEDS ORDERED: PANT40TA2 PO (11:11)
[2017-08-30] MEDS ORDERED: ONDA4TAB11 PO (11:11)
== END 2017-08-29 10:25 | disposition home or self-care (01) ==
LOC: EDUNIT# 09:41 → ER 09:42 → ICU 11:47
PROVIDERS: ADMIT Family Medicine; ATTEND Family Medicine
DX: I63.412 Cerebral infarction due to embolism of left middle cerebral artery (principal); R29.810 Facial weakness; R29.898 Other symptoms and signs involving the musculoskeletal system; I25.10 Atherosclerotic heart disease of native coronary artery without angina pectoris; G25.0 Essential tremor; Z82.49 Family history of ischemic heart disease and other diseases of the circulatory system; Z79.899 Other long term (current) drug therapy
CPT/HCPCS: 36415; 70450; 70496; 70498; 71010; 80053; 80061; 82962; 84484; 85025; 85379; 85610; 85730; 93005; 93041; 93306

== ENCOUNTER 2017-08-30 08:46 | Emergency (ER) | payer OTHER ==
[~2017-08-30] VITALS: Ht 172.7 cm; Wt 73.7 kg
[~2017-08-30 08:46] MED LIST changes: +ASPI325T32 PO; +ATOR40TA70 PO
[2017-08-30] MEDS ORDERED: PANTOPRAZOLE 40 MG/10 ML (PROTONIX) VIAL IV ONE (09:30)
[2017-08-30 09:36] LABS: BASOPHILS % (AUTO) 0 % (0-10); EOSINOPHILS # (AUTO) 0.1 10^3/uL (0.0-0.3); EOSINOPHILS % (AUTO) 1 % (0-10); LYMPHOCYTES # (AUTO) 1.1 X 10^3 (1.0-4.0); LYMPHOCYTES % (AUTO) 18 % (12-44); MEAN CORPUSCULAR HEMOGLOBIN 31 PG (25-34); MEAN CORPUSCULAR HGB CONC 33 G/DL (32-36); MEAN CORPUSCULAR VOLUME 92 FL (80-99); MEAN PLATELET VOLUME 8.5 FL (7.4-10.4); MONOCYTES # (AUTO) 0.5 X 10^3 (0.0-1.0); MONOCYTES % (AUTO) 7 % (0-12); NEUTROPHILS # (AUTO) 4.6 X 10^3 (1.8-7.8); NEUTROPHILS % (AUTO) 73 % (42-75); PLATELET COUNT 274 10^3/uL (130-400); RED BLOOD COUNT 4.29 10^6/uL (4.35-5.85); RED CELL DISTRIBUTION WIDTH 11.8 % (10.0-14.5); WHITE BLOOD COUNT 6.3 10^3/uL (4.3-11.0)
--- NOTE | 2017-08-30 09:37 | ED GI ---
General Chief Complaint: Abdominal/GI Problems Stated Complaint: NAUSEA Nursing Triage Note: PT C/O NAUSEA AND DIFFUSE ABD CRAMPING. HE DENIES VOMITING OR DIARRHEA. PT WAS ADMITTED TO THIS HOSPITAL AND DC'D YESTERDAY FOR TIA. PT HAS HX OF ULCER. Sepsis Screen: No Definite Risk Source of Information: Patient Exam Limitations: No Limitations History of Present Illness Time Seen By Provider: 09:05 Initial Comments Here with complaint of diffuse abdominal cramping. No vomiting or diarrhea. States it's in the epigastric region. He was in the hospital this weekend for TIA that occurred Wednesday. He was started on aspirin. Patient states that he has self diagnosed ulcers and this feels like that is acting up. He did have episode a couple weeks ago of vomiting and diarrhea. Not Exactly sure what is going on. He called his doctor's office for appointment and they instructed him to come here for further evaluation. He has not taken his aspirin today. He is currently on full dose aspirin. He has follow-up with the heart on Wednesday. Denies bloody stool. He has not had bowel movement since leaving the hospital or since the initial incident on Wednesday. Timing/Duration: 1-3 Hours Severity/Quality: Moderate Location: Epigastric Radiation: No Radiation Activities at Onset: None Modifying Factors: Improves With Resting Associated Symptoms: No Back Pain, No Chest Pain, No Fever/Chills, No Shortness of Air, No Weakness Allergies and Home Medications Allergies Coded Allergies: No Known Drug Allergies (Unverified , 06/03/12) Home Medications Alprazolam 0.25 Mg Tab.avdis, 1 EACH PO HS, (Reported) Aspirin 325 Mg , 325 MG PO Q24H, #30 Prescribed by: HINA KUMAR on 08/29/17 0941 Atorvastatin Calcium 40 Mg Tablet, 40 MG PO DAILY for 30 Days, #30 Prescribed by: HINA KUMAR on 08/29/17 0941 Pantoprazole Sod 40 Mg Tab, 40 MG PO DAILY AM, (Reported) [Herbal Lax] , (Reported) PRN FOR CONSTIPATION [Z-Quil] , (Reported) PRN FOR INSOMNIA Review of Systems Constitutional: see HPI EENTM: No Symptoms Reported Respiratory: No Symptoms Reported Cardiovascular: No Symptoms Reported Gastrointestinal: See HPI, Abdominal Pain (cramping like you can have diarrhea) , Nausea, Denies Vomiting Genitourinary: No Symptoms Reported Musculoskeletal: no symptoms reported Skin: no symptoms reported All Other Systems Reviewed Negative Unless Noted: Yes Past Lshqdxs-Okudar-Yydoyo Hx Patient Social History Alcohol Use: Denies Use Recreational Drug Use: No Smoking Status: Never a Smoker 2nd Hand Smoke Exposure: No Recent Foreign Travel: No Contact w/Someone Who Travel: No Recent Infectious Disease Expo: No Recent Hopitalizations: Yes (TIA 08/28/17) Physical Abuse: No Sexual Abuse: No Immunizations Up To Date Date of Pneumonia Vaccine: Aug 28, 2015 Date of Influenza Vaccine: Jul 19, 2017 Seasonal Allergies Seasonal Allergies: No Surgeries History of Surgeries: Yes (HERNIA REPAIR 10 YRS AGO) Surgeries: Abdominal Respiratory History of Respiratory Disorde: No Cardiovascular History of Cardiac Disorders: No Neurological History of Neurological Disord: Yes (essential tremor) Reproductive System Hx Reproductive Disorders: No Sexually Transmitted Disease: No Genitourinary History of Genitourinary Disor: No Gastrointestinal History of Gastrointestinal Di: No Musculoskeletal History of Musculoskeletal Dis: No Endocrine History of Endocrine Disorders: No HEENT History of HEENT Disorders: No Cancer History of Cancer: No Psychosocial History of Psychiatric Problem: No Suicide Risk Score: 0 Integumentary History of Skin or Integumenta: No Blood Transfusions History of Blood Disorders: No Adverse Reaction to a Blood Tr: No Reviewed Nursing Assessment Reviewed/Agree w Nursing PMH: Yes Family Medical History Significant Family History: No Pertinent Family Hx Physical Exam Vital Signs VS - Last 72 Hours, by Label 08/30/17 09:00 Temp 98.1 Pulse 64 Resp 18 B/P (MAP) 152/87 (108) Pulse Ox 98 O2 Delivery Room Air Capillary Refill : Less Than 3 Seconds General Appearance: WD/WN, no apparent distress HEENT: PERRL/EOMI, pharynx normal Neck: full range of motion, supple Respiratory: lungs clear, normal breath sounds Cardiovascular: regular rate, rhythm, no murmur Peripheral Pulses: 2+ Dorsalis Pedis (R), 2+ Left Dors-Pedis (L), 2+ Radial Pulses (R), 2+ Radial Pulses (L) Gastrointestinal: non tender, soft Extremities: non-tender, normal inspection Back: normal inspection, no CVA tenderness, no vertebral tenderness Neurologic/Psychiatric: alert, oriented x 3 Skin: normal color, warm/dry Progress/Results/Core Measures Results/Orders Lab Results Laboratory Tests Test 08/30/17 09:25 Range/Units White Blood Count 6.3 4.3-11.0 10^3/uL Red Blood Count 4.29 L 4.35-5.85 10^6/uL Hemoglobin 13.1 L 13.3-17.7 G/DL Hematocrit 39 L 40-54 % Mean Corpuscular Volume 92 80-99 FL Mean Corpuscular Hemoglobin 31 25-34 PG Mean Corpuscular Hemoglobin Concent 33 32-36 G/DL Red Cell Distribution Width 11.8 10.0-14.5 % Platelet Count 274 130-400 10^3/uL Mean Platelet Volume 8.5 7.4-10.4 FL Neutrophils (%) (Auto) 73 42-75 % Lymphocytes (%) (Auto) 18 12-44 % Monocytes (%) (Auto) 7 0-12 % Eosinophils (%) (Auto) 1 0-10 % Basophils (%) (Auto) 0 0-10 % Neutrophils # (Auto) 4.6 1.8-7.8 X 10^3 Lymphocytes # (Auto) 1.1 1.0-4.0 X 10^3 Monocytes # (Auto) 0.5 0.0-1.0 X 10^3 Eosinophils # (Auto) 0.1 0.0-0.3 10^3/uL Basophils # (Auto) 0.0 0.0-0.1 10^3/uL Sodium Level 139 135-145 MMOL/L Potassium Level 4.4 3.6-5.0 MMOL/L Chloride Level 103 98-107 MMOL/L Carbon Dioxide Level 28 21-32 MMOL/L Anion Gap 8 5-14 MMOL/L Blood Urea Nitrogen 17 7-18 MG/DL Creatinine 1.28 0.60-1.30 MG/DL Estimat Glomerular Filtration Rate 55 BUN/Creatinine Ratio 13 Glucose Level 95 70-105 MG/DL Calcium Level 9.7 8.5-10.1 MG/DL Total Bilirubin 0.7 0.1-1.0 MG/DL Aspartate Amino Transf (AST/SGOT) 20 5-34 U/L Alanine Aminotransferase (ALT/SGPT) 18 0-55 U/L Alkaline Phosphatase 54 40-136 U/L Troponin I < 0.30 <0.30 NG/ML Total Protein 7.5 6.4-8.2 GM/DL Albumin 4.2 3.2-4.5 GM/DL Lipase 28 8-78 U/L My Orders Orders - KANDIS STRAUSS MD Cbc With Automated Diff (08/30/17 09:16) Comprehensive Metabolic Panel (08/30/17 09:16) Lipase (08/30/17 09:16) Troponin I (08/30/17 09:16) Saline Lock/Iv-Start (08/30/17 09:16) Ekg Tracing (08/30/17 09:16) Pantoprazole Injection (Protonix Injecti (08/30/17 09:30) Medications Given in ED Current Medications Medications Dose Ordered Sig/Farhan Route Start Time Stop Time Status Last Admin Dose Admin Pantoprazole 40 mg ONCE ONCE IV 08/30/17 09:30 08/30/17 09:31 DC 08/30/17 09:34 40 MG Vital Signs/I&O Vital Sign - Last 12Hours 08/30/17 09:00 Temp 98.1 Pulse 64 Resp 18 B/P (MAP) 152/87 (108) Pulse Ox 98 O2 Delivery Room Air Blood Pressure Mean: 108 Progress Note : Progress Note Seen and evaluated. IV, labs, EKG, Protonix 40 mg IV ordered. Monitor patient. 1100: I did discuss the case with Dr. Burnett. Patient is doing okay currently. Labs reviewed and compared to previous. His significant changes. We will continue Protonix as outpatient and decrease aspirin to 81 mg daily. He 'll follow-up with Dr. Burnett on Wednesday with likely upper endoscopy on Wednesday. This was discussed with patient and family who agree. Discharged home with return precautions. Patient verbalize understanding instructions and agreement with plan. ECG Initial ECG Impression Date: Aug 30, 2017 Initial ECG Impression Time: 09:18 Initial ECG Rate: 59 Initial ECG Rhythm: Normal Sinus Comment Sinus rhythm with normal axis. No evidence of ST elevation [place]. Similar to previous of 08/28/17. Interpreted by me. Departure Impression Impression: Primary Impression: Epigastric abdominal pain Disposition: 01 HOME, SELF-CARE Condition: Stable Departure-Patient Inst. Decision time for Depature: 11:10 Referrals: JENNIFFER BURNETT MD (PCP/Family) Primary Care Physician Patient Instructions: Acute Abdomen (Belly Pain), Adult (DC), Peptic Ulcers (DC ) Add. Discharge Instructions: All discharge instructions reviewed with patient and/or family. Voiced understanding. Eat a light diet for the next few days. Follow-up with Dr. Burnett on Wednesday. Call his office today for appointment. Return for worse pain, fever , vomiting, weakness, breathing problems or other concerns as needed. Decrease aspirin to 81 mg daily. Take other medications as directed. Scripts Ondansetron (Ondansetron Odt) 4 Mg Tab.rapdis 4 MG PO Q6H Y for NAUSEA/VOMITING, #8 TAB 0 Refills Prov: KANDIS STRAUSS MD 08/30/17 Pantoprazole Sodium (Protonix) 40 Mg Tablet. 40 MG PO DAILY for 30 Days, #30 TAB Prov: KANDIS STRAUSS MD 08/30/17 Copy Copies To 1: JENNIFFER BURNETT MD, TIMOTHY D MD Aug 30, 2017 09:37
[2017-08-30 10:00] LABS: ALANINE AMINOTRANSFERASE 18 U/L (0-55); ALBUMIN 4.2 GM/DL (3.2-4.5); ANION GAP 8 MMOL/L (5-14); ASPARTATE AMINO TRANSFERASE 20 U/L (5-34); BILIRUBIN,TOTAL 0.7 MG/DL (0.1-1.0); BLOOD UREA NITROGEN 17 MG/DL (7-18); BUN/CREATININE RATIO 13; CALCIUM 9.7 MG/DL (8.5-10.1); CARBON DIOXIDE 28 MMOL/L (21-32); CHLORIDE 103 MMOL/L (98-107); CREATININE SERUM 1.28 MG/DL (0.60-1.30); GFR ESTIMATED 55; GLUCOSE 95 MG/DL (70-105); LIPASE 28 U/L (8-78); POTASSIUM 4.4 MMOL/L (3.6-5.0); SODIUM 139 MMOL/L (135-145); TOTAL PROTEIN 7.5 GM/DL (6.4-8.2)
[2017-08-30 10:07] LABS: TROPONIN I < 0.30 NG/ML (<0.30)
[2017-08-30] MEDS ORDERED: PANT40TA2 PO (11:11)
[2017-08-30] MEDS ORDERED: ONDA4TAB11 PO (11:11)
[2017-08-30 11:15] VITALS: BP 152/87
== END 2017-08-30 11:15 | disposition home or self-care (01) ==
LOC: EDUNIT# 08:46 → ER 08:48
DX: R10.13 Epigastric pain (principal); Z86.73 Personal history of transient ischemic attack (TIA), and cerebral infarction without residual deficits; Z87.19 Personal history of other diseases of the digestive system; Z79.82 Long term (current) use of aspirin
CPT/HCPCS: 36415; 80053; 83690; 84484; 85025; 93005

== ENCOUNTER → 2017-09-01 | Day surgery (SDC) | payer OTHER ==
[~2017-09-01] VITALS: Ht 172.7 cm; Wt 73.7 kg
[~2017-09-01] MED LIST changes: +ALPR0.254 PO; +ASPI-586 PO; +LIDOCAINE 1% INJ 50 ML (XYLOCAINE) VIAL ONE; +ONDA4TAB11 PO; +PANT40TA2 PO; +PANT40TA3 PO
[2017-09-01 10:29] VITALS: BP 134/75
--- NOTE | 2017-09-01 12:28 | OPERATIVE REPORT ---
DATE OF SERVICE: 09/01/2017 PROCEDURE PERFORMED: Reveal device implantation. BRIEF HISTORY: The patient is a 72-year-old gentleman with history of hypertension. Admitted with acute CVA. It appears to be embolic with a thrombus in the right middle cerebral artery. No source of embolization was noted. It is considered cryptogenic stroke. He was scheduled for a Reveal device implantation. He was monitored on telemetry for over 24 hours without arrhythmia. Echocardiogram did not show significant abnormality or source of embolization. PROCEDURE NOTE: After explaining the procedure to the patient all pros and cons were explained. All questions were answered. The patient signed a consent and he was placed in the holding area, no sedation was needed. Local anesthesia applied. Skin incision was made. Then a Reveal LINQ with serial [id number] implanted subcutaneously, manual pressure applied and Dermabond applied. No complication noted. CONCLUSION: Successful Reveal device implantation with no complication. FINAL DIAGNOSES: 1. Cryptogenic stroke. 2. Thrombus in the right middle cerebral artery. 3. Hypertension. Job ID: [id number] DocumentID: [id number] Dictated Date: 09/01/2017 11:08:30 Personal Care Home Administrator Date: 09/01/2017 12:27:24 Dictated By: DANIELLE SHIPLEY MD
== END | disposition home or self-care (01) ==
LOC: CATH 10:01
PROVIDERS: ATTEND Internal Medicine Cardiovascular Disease
DX: I63.412 Cerebral infarction due to embolism of left middle cerebral artery (principal); I10 Essential (primary) hypertension
CPT/HCPCS: 33282

== ENCOUNTER 2017-09-02 06:19 | Outpatient (CLI) | payer OTHER ==
[~2017-09-02] VITALS: Ht 172.7 cm; Wt 73.5 kg
[~2017-09-02 06:19] MED LIST changes: -ALPR0.254 PO; -ASPI-586 PO; -LIDOCAINE 1% INJ 50 ML (XYLOCAINE) VIAL ONE; -PANT40TA3 PO
[2017-09-02] MEDS ORDERED: ALPR0.254 PO (09:51)
[2017-09-02] MEDS ORDERED: PANT40TA3 PO (09:51)
[2017-09-02] MEDS ORDERED: ASPI-586 PO (09:51)
== END 2017-09-02 10:23 ==
LOC: PREOP 06:19
PROVIDERS: ATTEND Internal Medicine
DX: Z01.818 Encounter for other preprocedural examination (principal); R10.13 Epigastric pain

== ENCOUNTER 2017-09-03 08:23 | Day surgery (SDC) | payer OTHER ==
[~2017-09-03] VITALS: Ht 172.7 cm; Wt 73.5 kg
--- NOTE | 2017-09-03 05:00 | HISTORY AND PHYSICAL ---
DATE OF SERVICE: EGD HISTORY AND PHYSICAL DATE OF ADMISSION: 09/03/2017. HISTORY OF PRESENT ILLNESS: The patient is a 72-year-old white male, who reports he has been having increased belching and epigastric discomfort for the past month. He stopped taking his prophylactic aspirin. He reports his symptoms were similar to a previous history when peptic ulcer disease was diagnosed after EGD evaluation. He got up to go to the bathroom Wednesday morning, he was unable to get up from the commode secondary to left-sided weakness. He sat there for an hour before he could summon help. He was brought to the emergency room where he was noted to have a left MCA thrombus. Symptoms resolved within 2 hours completely and did not require any form of therapy other than full strength aspirin. He was admitted overnight and discharged the following day after neurologic consultation at . He did undergo Reveal device placement to rule out paroxysmal atrial fibrillation, he had no significant carotid disease on CTA and echocardiography was unremarkable as well. He returned to the emergency room with nausea on Wednesday, I discussed his case with the emergency room physician, advised decreasing his aspirin to baby aspirin and initiating pantoprazole. Today, he was able to keep some solids down for the first time in 48 hours, although he is still belching and still has some epigastric discomfort. He denies dysphagia, melena or bright red blood per rectum. He denies any radiation of pain and emergency room labs including lipase were evaluated and were unremarkable. PHYSICAL EXAMINATION: GENERAL: Reveals a somewhat anxious-appearing white male, otherwise in no acute distress. Skin and conjunctivae revealed no evidence for pallor. VITAL SIGNS: His weight was down 8.6 pounds from 9 months ago. Blood pressure 122/70. CHEST: Clear. CARDIOVASCULAR: Revealed a regular rate and rhythm without murmur, S3 or S4. NECK: Revealed no JVD, adenopathy or bruits. ABDOMEN: Soft, supple. Epigastric discomfort to palpation was present without rebound or guarding. No mass or organomegaly is noted. Bowel sounds are noted in all four quadrants, no bruits are appreciated. ASSESSMENT AND PLAN: 1. Epigastric pain, nausea, suspicious for recurrent peptic ulcer disease. The patient was advised to continue pantoprazole and after discussion, is set up for EGD on 09/03, this Wednesday. 2. Recent right middle cerebral artery thrombus with associated TIA; in addition, neuro evaluation was unremarkable today with normal left-sided strength. The patient is right handed and reported no speech difficulty. Tentatively, we will have him follow up in one month, but considering recent thrombus and high risk for CVA, continue baby aspirin daily with pantoprazole 40 mg daily. Job ID: [id number] DocumentID: [id number] Dictated Date: 09/01/2017 17:21:36 Production Department Supervisor Date: 09/01/2017 17:49:36 Dictated By: JENNIFFER BURNETT MD
[~2017-09-03 08:23] MED LIST changes: +ALPR0.254 PO; +ASPI-586 PO; +PANT40TA3 PO
--- OUTSIDE RECORDS SUMMARY | 2017-09-03 08:27 | XMS REPORT | Continuity of Care Document ---
Author Author [facility] Organization [facility] Address Unknown Phone Unavailable Allergies Active Description Code Type Severity Reaction Onset Reported/Identified Relationship to Patient Clinical Status Yes No Known Drug Allergies [id number] Drug Allergy Unknown N/A 06/03/2012 Medications There is no data. Problems Date Dx Coded Attending Type Code Diagnosis Diagnosed By 06/03/2012 Ot V76.51 SCREEN MAL NEOP-COLON 07/19/2012 Ot 724.2 LUMBAGO 10/21/2012 Ot 272.4 HYPERLIPIDEMIA NEC/NOS 10/21/2012 Ot 308.0 STRESS REACT , EMOTIONAL 10/21/2012 Ot 414.01 CORONARY ATHEROSCLEROSIS OF [place] CORON 10/21/2012 Ot 531.90 STOMACH ULCER NOS 10/21/2012 Ot 786.59 CHEST PAIN NEC 10/21/2012 Ot 794.31 ABNORM ELECTROCARDIOGRAM 10/21/2012 Ot V58.66 LONG-TERM ( CURRENT) USE OF ASPIRIN 12/02/2012 Ot 537.1 GASTRIC DIVERTICULUM 05/12/2016 Ot 724.2 LUMBAGO 05/12/2016 Ot 959.19 OTH INJURY OF OTHER SITES OF TRUNK 05/12/2016 Ot E000.8 OTHER EXTERNAL CAUSE STATUS 05/12/2016 Ot E849.0 ACCIDENT IN HOME 05/12/2016 Ot E928.9 ACCIDENT NOS 05/12/2016 Ot 724.3 SCIATICA 05/12/2016 Ot V72.84 EXAM PRE- OPERATIVE NOS 05/12/2016 Ot V72.84 EXAM PRE- OPERATIVE NOS 05/12/2016 JENNIFFER BURNETT MD Ot 721.3 LUMBOSACRAL SPONDYLOSIS 05/12/2016 JENNIFFER BURNETT MD Ot 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 DISC DEGEN 05/20/2016 Ot 724.2 LUMBAGO 05/20/2016 Ot 959.19 OTH INJURY OF OTHER SITES OF TRUNK 05/20/2016 Ot E000.8 OTHER EXTERNAL CAUSE STATUS 05/20/2016 Ot E849.0 ACCIDENT IN HOME 05/20/2016 Ot E928.9 ACCIDENT NOS 05/20/2016 Ot 724.3 SCIATICA 05/20/2016 Ot V72.84 EXAM PRE- OPERATIVE NOS 05/20/2016 Ot V72.84 EXAM PRE- OPERATIVE NOS 05/20/2016 HORTENCIA RUSSELL, JENNIFFER Haji Ot 721.3 LUMBOSACRAL SPONDYLOSIS 05/20/2016 HORTENCIA RUSSELL, JENNIFFER Haji Ot 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 DISC DEGEN 08/28/2017 Ot V72.84 EXAM PRE- OPERATIVE NOS 08/28/2017 Ot V72.84 EXAM PRE- OPERATIVE NOS 08/28/2017 HORTENCIA RUSSELL, JENNIFFER Haji Ot 721.3 LUMBOSACRAL SPONDYLOSIS 08/28/2017 JENNIFFER BURNETT MD Ot 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 DISC DEGEN 08/29/2017 STACY RUSSELL, HINA Corbin Ot G25.0 ESSENTIAL TREMOR 08/29/2017 HINA KUMAR MD Ot I25.10 ATHSCL HEART DISEASE OF [place] CORONARY 08/29/2017 HINA KUMAR MD Ot 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 08/29/2017 HINA KUMRA MD Ot R29.810 FACIAL WEAKNESS 08/29/2017 HINA KUMAR MD Ot R29.898 OT SYMPTOMS AND SIGNS INVOLVING THE MUS 08/29/2017 HINA KUMAR MD Ot Z79.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 08/29/2017 HINA KUMAR MD Ot Z82.49 FAMILY HX OF ISCHEM HEART DIS AND OTH DI 08/30/2017 KANDIS STRAUSS MD Ot R10.13 EPIGASTRIC PAIN 08/30/2017 KANDIS STRAUSS MD Ot R10.84 GENERALIZED ABDOMINAL PAIN 08/30/2017 KANDIS STRAUSS MD Ot Z79.82 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 OF ASPIRIN 08/30/2017 KANDIS STRAUSS MD Ot Z86.73 PRSNL HX OF TIA (TIA), AND CEREB INFRC W 08/30/2017 KANDIS STRAUSS MD Ot Z87.19 PERSONAL HISTORY OF OTHER DISEASES OF TH 08/30/2017 Ot V72.84 EXAM PRE- OPERATIVE NOS 08/30/2017 Ot V72.84 EXAM PRE- OPERATIVE NOS 08/30/2017 HORTENCIA RUSSELL, JENNIFFER Haji Ot 721.3 LUMBOSACRAL SPONDYLOSIS 08/30/2017 HORTENCIA RUSSELL, JENNIFFER Haji Ot 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 DISC DEGEN 08/30/2017 Ot V72.84 EXAM PRE- OPERATIVE NOS 08/30/2017 Ot V72.84 EXAM PRE- OPERATIVE NOS 08/30/2017 HORTENCIA RUSSELL, JENNIFFER Haji Ot 721.3 LUMBOSACRAL SPONDYLOSIS 08/30/2017 JENNIFFER BURNETT MD Ot 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 DISC DEGEN 09/01/2017 Ot V72.84 EXAM PRE- OPERATIVE NOS 09/01/2017 Ot V72.84 EXAM PRE- OPERATIVE NOS 09/01/2017 HORTENCIA RUSSELL, JENNIFFER Haji Ot 721.3 LUMBOSACRAL SPONDYLOSIS 09/01/2017 JENNIFFER BURNETT MD Ot 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 DISC DEGEN Procedures There is no data. Results Test Result Range Complete blood count (CBC) with automated white blood cell (WBC) differential - 08/28/17 09:44 Blood leukocytes automated count (number/volume) 8.5 10*3/uL 4.3-11.0 Blood erythrocytes automated count (number/volume) 4.43 10*6/uL 4.35-5.85 Venous blood hemoglobin measurement (mass/volume) 13.8 g/dL 13.3-17.7 Blood hematocrit (volume fraction) 41 % 40-54 Automated erythrocyte mean corpuscular volume 91 [foz_us] 80-99 Automated erythrocyte mean corpuscular hemoglobin (mass per erythrocyte) 31 pg 25-34 Automated erythrocyte mean corpuscular hemoglobin concentration measurement ( mass/volume) 34 g/dL 32-36 Automated erythrocyte distribution width ratio 11.9 % 10.0-14.5 Automated blood platelet count (count/volume) 297 10*3/uL 130-400 Automated blood platelet mean volume measurement 9.1 [foz_us] 7.4-10.4 Automated blood neutrophils/100 leukocytes 65 % 42-75 Automated blood lymphocytes/100 leukocytes 25 % 12-44 Blood monocytes/100 leukocytes 7 % 0-12 Automated blood eosinophils/100 leukocytes 3 % 0-10 Automated blood basophils/100 leukocytes 0 % 0-10 Blood neutrophils automated count (number/volume) 5.5 10*3 1.8-7.8 Blood lymphocytes automated count (number/volume) 2.1 10*3 1.0-4.0 Blood monocytes automated count (number/volume) 0.6 10*3 0.0-1.0 Automated eosinophil count 0.3 10*3/uL 0.0-0.3 Automated blood basophil count (count/volume) 0.0 10*3/uL 0.0-0.1 PT panel in platelet poor plasma by coagulation assay - 08/28/17 09:44 Prothrombin time (PT) in platelet poor plasma by coagulation assay 13.4 s 12.2-14.7 INR in platelet poor plasma or blood by coagulation assay 1.0 0.8-1.4 Activated partial thromboplastin time (aPTT) in platelet poor plasma bycoagulation assay - 08/28/17 09:44 Activated partial thromboplastin time (aPTT) in platelet poor plasma bycoagulation assay 26 s 24-35 Fibrin D-dimer FEU measurement in platelet poor plasma (mass/volume) - 09:44 Fibrin D-dimer FEU measurement in platelet poor plasma (mass/volume) 0.60 ug/mL 0.00-0.49 Comprehensive metabolic panel - 08/28/17 09:44 Serum or plasma sodium measurement (moles/volume) 139 mmol/L 135-145 Serum or plasma potassium measurement (moles/volume) 4.7 mmol/L 3.6-5.0 Serum or plasma chloride measurement (moles/volume) 104 mmol/L 98-107 Carbon dioxide 23 mmol/L 21-32 Serum or plasma anion gap determination (moles/volume) 12 mmol/L 5-14 Serum or plasma urea nitrogen measurement (mass/volume) 22 mg/dL 7-18 Serum or plasma creatinine measurement (mass/volume) 1.26 mg/dL 0.60-1.30 Serum or plasma urea nitrogen/creatinine mass ratio 17 NRG Serum or plasma creatinine measurement with calculation of estimated glomerular filtration rate 56 NRG Serum or plasma glucose measurement (mass/volume) 101 mg/dL 70-105 Serum or plasma calcium measurement (mass/volume) 9.4 mg/dL 8.5-10.1 Serum or plasma total bilirubin measurement (mass/volume) 0.4 mg/dL 0.1-1.0 Serum or plasma alkaline phosphatase measurement (enzymatic activity/volume) 57 U/L 40-136 Serum or plasma aspartate aminotransferase measurement (enzymatic activity/ volume) 20 U/L 5-34 Serum or plasma alanine aminotransferase measurement (enzymatic activity/volume ) 18 U/L 0-55 Serum or plasma protein measurement (mass/volume) 7.7 g/dL 6.4-8.2 Serum or plasma albumin measurement (mass/volume) 4.2 g/dL 3.2-4.5 Serum or plasma troponin i.cardiac measurement (mass/volume) - 08/28/17 09:44 Serum or plasma troponin i.cardiac measurement (mass/volume) < ng/ mL <0.30 Capillary blood glucose measurement by glucometer (mass/volume) - 08/28/17 10: 19 Capillary blood glucose measurement by glucometer (mass/volume) 85 mg/dL 70-110 PT panel in platelet poor plasma by coagulation assay - 08/29/17 04:30 Prothrombin time (PT) in platelet poor plasma by coagulation assay 13.4 s 12.2-14.7 INR in platelet poor plasma or blood by coagulation assay 1.0 0.8-1.4 Comprehensive metabolic panel - 08/29/17 04:30 Serum or plasma sodium measurement (moles/volume) 140 mmol/L 135-145 Serum or plasma potassium measurement (moles/volume) 4.1 mmol/L 3.6-5.0 Serum or plasma chloride measurement (moles/volume) 108 mmol/L 98-107 Carbon dioxide 21 mmol/L 21-32 Serum or plasma anion gap determination (moles/volume) 11 mmol/L 5-14 Serum or plasma urea nitrogen measurement (mass/volume) 18 mg/dL 7-18 Serum or plasma creatinine measurement (mass/volume) 1.05 mg/dL 0.60-1.30 Serum or plasma urea nitrogen/creatinine mass ratio 17 NRG Serum or plasma creatinine measurement with calculation of estimated glomerular filtration rate > NRG Serum or plasma glucose measurement (mass/volume) 94 mg/dL 70-105 Serum or plasma calcium measurement (mass/volume) 8.3 mg/dL 8.5-10.1 Serum or plasma total bilirubin measurement (mass/volume) 0.4 mg/dL 0.1-1.0 Serum or plasma alkaline phosphatase measurement (enzymatic activity/volume) 48 U/L 40-136 Serum or plasma aspartate aminotransferase measurement (enzymatic activity/ volume) 15 U/L 5-34 Serum or plasma alanine aminotransferase measurement (enzymatic activity/volume ) 13 U/L 0-55 Serum or plasma protein measurement (mass/volume) 6.3 g/dL 6.4-8.2 Serum or plasma albumin measurement (mass/volume) 3.6 g/dL 3.2-4.5 Lipid 1996 panel - 08/29/17 04:30 Serum or plasma triglyceride measurement (mass/volume) 91 mg/dL <150 Serum or plasma cholesterol measurement (mass/volume) 156 mg/dL < 200 Serum or plasma cholesterol in HDL measurement (mass/volume) 44 mg/ dL 40-60 Cholesterol in LDL [mass/volume] in serum or plasma by direct assay 96 mg/dL 1-129 Serum or plasma cholesterol in VLDL measurement (mass/volume) 18 mg/ dL 5-40 Complete blood count (CBC) with automated white blood cell (WBC) differential - 08/30/17 09:25 Blood leukocytes automated count (number/volume) 6.3 10*3/uL 4.3-11.0 Blood erythrocytes automated count (number/volume) 4.29 10*6/uL 4.35-5.85 Venous blood hemoglobin measurement (mass/volume) 13.1 g/dL 13.3-17.7 Blood hematocrit (volume fraction) 39 % 40-54 Automated erythrocyte mean corpuscular volume 92 [foz_us] 80-99 Automated erythrocyte mean corpuscular hemoglobin (mass per erythrocyte) 31 pg 25-34 Automated erythrocyte mean corpuscular hemoglobin concentration measurement ( mass/volume) 33 g/dL 32-36 Automated erythrocyte distribution width ratio 11.8 % 10.0-14.5 Automated blood platelet count (count/volume) 274 10*3/uL 130-400 Automated blood platelet mean volume measurement 8.5 [foz_us] 7.4-10.4 Automated blood neutrophils/100 leukocytes 73 % 42-75 Automated blood lymphocytes/100 leukocytes 18 % 12-44 Blood monocytes/100 leukocytes 7 % 0-12 Automated blood eosinophils/100 leukocytes 1 % 0-10 Automated blood basophils/100 leukocytes 0 % 0-10 Blood neutrophils automated count (number/volume) 4.6 10*3 1.8-7.8 Blood lymphocytes automated count (number/volume) 1.1 10*3 1.0-4.0 Blood monocytes automated count (number/volume) 0.5 10*3 0.0-1.0 Automated eosinophil count 0.1 10*3/uL 0.0-0.3 Automated blood basophil count (count/volume) 0.0 10*3/uL 0.0-0.1 Comprehensive metabolic panel - 08/30/17 09:25 Serum or plasma sodium measurement (moles/volume) 139 mmol/L 135-145 Serum or plasma potassium measurement (moles/volume) 4.4 mmol/L 3.6-5.0 Serum or plasma chloride measurement (moles/volume) 103 mmol/L 98-107 Carbon dioxide 28 mmol/L 21-32 Serum or plasma anion gap determination (moles/volume) 8 mmol/L 5-14 Serum or plasma urea nitrogen measurement (mass/volume) 17 mg/dL 7-18 Serum or plasma creatinine measurement (mass/volume) 1.28 mg/dL 0.60-1.30 Serum or plasma urea nitrogen/creatinine mass ratio 13 NRG Serum or plasma creatinine measurement with calculation of estimated glomerular filtration rate 55 NRG Serum or plasma glucose measurement (mass/volume) 95 mg/dL 70-105 Serum or plasma calcium measurement (mass/volume) 9.7 mg/dL 8.5-10.1 Serum or plasma total bilirubin measurement (mass/volume) 0.7 mg/dL 0.1-1.0 Serum or plasma alkaline phosphatase measurement (enzymatic activity/volume) 54 U/L 40-136 Serum or plasma aspartate aminotransferase measurement (enzymatic activity/ volume) 20 U/L 5-34 Serum or plasma alanine aminotransferase measurement (enzymatic activity/volume ) 18 U/L 0-55 Serum or plasma protein measurement (mass/volume) 7.5 g/dL 6.4-8.2 Serum or plasma albumin measurement (mass/volume) 4.2 g/dL 3.2-4.5 Serum or plasma troponin i.cardiac measurement (mass/volume) - 08/30/17 09:25 Serum or plasma troponin i.cardiac measurement (mass/volume) < ng/ mL <0.30 Lipase - 08/30/17 09:25 Lipase 28 U/L 8-78 Encounters ACCT No. Visit Date/Time Discharge Status Pt. Type Provider Facility Loc./Unit Complaint [id number] 09/02/2017 06:19:00 09/02/2017 10:23:00 DIS Outpatient BURNETT MD, JENNIFFER D [facility] PREOP EGD [id number] 08/30/2017 08:48:00 08/30/2017 11:15:00 DIS Emergency RICA RUSSELL, KANDIS Haji [facility] ER NAUSEA [id number] 08/28/2017 11:47:00 08/29/2017 10:25:00 DIS Inpatient STACY RUSSELL, HINA Corbin [facility] ICU STROKE/FALL [id number] 01/29/2014 12:47:00 01/29/2014 23:59:59 CLS Outpatient JENNIFFER BURNETT MD [facility] RAD LOW BACK PAIN WITH LEFT LOWER EXT RIDICULAR PAIN [id number] 09/03/2017 08:23:00 ACT Outpatient JENNIFFER BURNETT MD [facility] ENDO EPIGASTRIC PAIN [id number] 09/01/2017 10:01:00 ACT Outpatient VIOLETTA RUSSELL, DANIELLE Sanchez [facility] CATH CVA,CAD [id number] 12/02/2012 06:35:00 Document Registration [id number] 11/30/2012 07:44:00 Document Registration [id number] 10/18/2012 21:00:00 Document Registration [id number] 07/19/2012 08:22:00 Document Registration [id number] 06/03/2012 07:00:00 Document Registration [id number] 06/02/2012 09:47:00 Document Registration [id number] 09/09/2011 10:20:00 Document Registration [id number] 07/15/2011 14:25:00 Document Registration
[2017-09-03] MEDS ORDERED: HURRICAINE EXT TUBE (BENZOCAINE) XX PRN (08:30)
[2017-09-03] MEDS ORDERED: D5 LR IV SOLUTION 1,000 ML IV ONE (08:30)
[2017-09-03] MEDS ORDERED: fentaNYL INJECTION 100 MCG/2 ML AMP IVP PRN (08:30)
[2017-09-03] MEDS ORDERED: D5 LR IV SOLUTION 1,000 ML IV STA (08:30)
[2017-09-03] MEDS ORDERED: MIDAZOLAM 2 MG/2 ML (VERSED) VIAL IVP PRN (08:30)
[2017-09-03] MEDS ORDERED: LIDOCAINE JELLY 2% (XYLOCAINE) 5 ML TUBE MM PRN (08:30)
[2017-09-03] MEDS ORDERED: MIDAZOLAM 2 MG/2 ML (VERSED) VIAL ONE (08:45)
[2017-09-03] MEDS ORDERED: LIDOCAINE JELLY 2% (XYLOCAINE) 5 ML TUBE ONE (08:45)
[2017-09-03] MEDS ORDERED: HURRICAINE EXT TUBE (BENZOCAINE) ONE (08:45)
[2017-09-03] MEDS ORDERED: fentaNYL INJECTION 100 MCG/2 ML AMP ONE (08:45)
--- NOTE | 2017-09-03 08:58 | Pre-Op Note & Conscious Sedat ---
Pre-Operative Progress Note H&P Reviewed The H&P was reviewed, patient examined and no changes noted. Date H&P Reviewed: Sep 03, 2017 Time H&P Reviewed: 08:20 Conscious Sedation Pre-Proced ASA Class: 2 Airway Mallampati Classification: (pauma appropriate class) I. II. III, IV Lungs Heart ASA score ASA 1: a normal healthy patient ASA 2: a patient with a mild systemic disease (mid diabetes, controlled hypertension, obesity ASA 3: a patient with a severe systemic disease that limits activity (angina , COPD, prior Myocardial infarction) ASA 4: a patient with an incapacitating disease that is a constant threat to life (CHF, renal failure) ASA 5: a moribund patient not expected to survive 24 hrs. (ruptured aneurysm) ASA 6: a declared brain patient whose organs are being harvested. For emergent operations, add the letter E after the classification Grade 2 Sedation Plan: Analgesia, Amnesia, Plan communicated to team members, Discussed options with patient/fam, Discussed risks with patient/fam Note The patient is an appropriate candidate to undergo the planned procedure, sedation, and anesthesia. The patient immediately re-assessed prior to indication. JENNIFFER BURNETT MD Sep 03, 2017 08:58
[2017-09-03 09:11] VITALS: BP 128/65
[2017-09-03 09:20] VITALS: BP 125/82
[2017-09-03 09:50] VITALS: BP 132/75
[2017-09-03 10:40] VITALS: BP 132/75
--- NOTE | 2017-09-03 18:41 | OPERATIVE REPORT ---
DATE OF SERVICE: 09/03/2017 REPORT TITLE: EGD Summary. SURGEON: Jenniffer Burnett MD INDICATION FOR THE PROCEDURE: Epigastric pain, nausea and anorexia. The patient was placed in the left lateral decubitus position. The endoscope was inserted into the oral cavity and under direct visualization, the esophagus was intubated. The scope was passed down to the esophagus through the stomach and second portion of the duodenum. Careful inspection was made as the endoscope was withdrawn. The patient tolerated the procedure well. FINDINGS: The esophagus was unremarkable with no evidence of rings, webs, strictures or Mac's change and no evidence for hiatal hernia was noted. The cardia, fundus and antrum of the stomach were unremarkable as was the pylorus and pyloric channel. There are a few patchy areas of duodenal erythema without evidence for erosions or ulceration. The second portion of the duodenum was unremarkable. ASSESSMENT: Mild duodenitis with an otherwise normal EGD. The patient reports on PPI therapy he is feeling much better and he was able to eat yesterday. I did advice that he continue it through to the first of the year, but then discontinue. He may resume if he has recurrence of symptoms. He will keep his regular follow up with me in several weeks. Job ID: [id number] DocumentID: [id number] Dictated Date: 09/03/2017 10:55:44 Director Of Cardiology Service Line Date: 09/03/2017 18:39:52 Dictated By: JENNIFFER BURNETT MD
== END 2017-09-03 10:40 | disposition home or self-care (01) ==
LOC: ENDO 08:23
PROVIDERS: ATTEND Internal Medicine
DX: K29.80 Duodenitis without bleeding (principal)

== ENCOUNTER 2020-12-25 05:39 | Outpatient (RCR) | payer MEDICARE, OTHER ==
[~2020-12-25] VITALS: Ht 172.7 cm; Wt 74.7 kg
[~2020-12-25 05:39] MED LIST changes: -ALPR0.254 PO; +ASPI-999 PO; -PANT40TA3 PO; +PANT40TA52 PO; +ROSU10TA28 PO
[2020-12-27] MEDS ORDERED: OMEP20CA18 PO (11:11)
[2020-12-27] MEDS ORDERED: ASPI-1238 PO (11:11)
== END 2020-12-25 09:38 | disposition home or self-care (01) ==
LOC: PREOP 05:39
PROVIDERS: ATTEND Internal Medicine
DX: Z01.812 Encounter for preprocedural laboratory examination (principal); R11.0 Nausea; R10.13 Epigastric pain; Z20.822 Contact with and (suspected) exposure to COVID-19
CPT/HCPCS: 87635

== ENCOUNTER 2020-12-27 08:26 | Day surgery (SDC) | payer MEDICARE, OTHER ==
--- NOTE | 2020-12-26 11:25 | HISTORY AND PHYSICAL ---
DATE OF SERVICE: EGD SUMMARY DATE OF ADMISSION: 12/27/2020. HISTORY OF PRESENT ILLNESS: The patient is a 75-year-old white male who presented to the office concerned that he had recurrent peptic ulcer. He had been having increased epigastric and left upper quadrant discomfort, better after meals, but temporarily, but worse several hours later. He denied waking up with pain in the middle of the night. Reports his appetite has been poor and he thought he probably lost a couple pounds over the past month since the onset of his symptoms. He was down 2.2 pounds from his last office weight two months ago. He denied dark stools or bright red blood per rectum. We did obtain a chemistry panel and a CBC that did reveal normocytic anemia. Hemoglobin was 12.9 with an MCV of 96. White count was just below the lower limits of normal at 4.75 thousand with a normal platelet count of 220,000 in the normal differential. For this reason, he is being set up for EGD evaluation. It has been over 10 years he thinks since he was diagnosed with an ulcer. He does not recall whether or not he may have been H. pylori positive or whether or not he took any antibiotics. PAST MEDICAL HISTORY: Some generalized anxiety. 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 He really has no other risk factors with other than hyperlipidemia for which he takes rosuvastatin 10 mg daily. He denies any aspirin or nonsteroidal medication use. PHYSICAL EXAMINATION: GENERAL: Revealed a white male, appeared to be in mild distress due to abdominal symptoms. VITAL SIGNS: Weight 164.6 pounds, blood pressure 130/80. HEENT: Unremarkable. CHEST: Clear. CARDIOVASCULAR: Regular rate and rhythm without S3 or S4. ABDOMEN: Soft, supple, nondistended. Mild epigastric and left upper quadrant discomfort to palpation was noted without rebound or guarding. No bruits noted. No evidence for abdominal aortic aneurysm to palpation. EXTREMITIES: Reveal no cyanosis, clubbing or edema. ASSESSMENT AND PLAN: For evaluation of anemia and epigastric and left upper quadrant pain, the patient is being set up for diagnostic EGD on 12/27/2020. Prep instructions were given and questions were answered. Blood tests were reviewed with the patient. Job ID: [id number] DocumentID: [id number] Dictated Date: 12/26/2020 09:50:20 Deputy Editor In Chief Date: 12/26/2020 11:24:38 Dictated By: JENNIFFER BURNETT MD
[~2020-12-27] VITALS: Ht 172.7 cm; Wt 74.7 kg
[2020-12-27] MEDS ORDERED: LACTATED RINGERS 1,000 ML IV ONE (08:34)
[2020-12-27] MEDS ORDERED: LACTATED RINGERS 1,000 ML IV STA (08:37)
[2020-12-27] MEDS ORDERED: LIDOCAINE JELLY 2% 6 ML SYRINGE MM PRN (08:45)
[2020-12-27] MEDS ORDERED: HURRICAINE EXT TUBE (BENZOCAINE) XX PRN (08:45)
[2020-12-27 08:50] VITALS: BP 138/77
[2020-12-27] MEDS ORDERED: proPOfol 200 MG/20 ML (DIPRIVAN) VIAL IV ONE (08:50)
--- NOTE | 2020-12-27 09:16 | Pre-Op Note & Conscious Sedat ---
Pre-Operative Progress Note H&P Reviewed The H&P was reviewed, patient examined and no changes noted. Date H&P Reviewed: Dec 27, 2020 Time H&P Reviewed: 09:15 Conscious Sedation Pre-Proced ASA Score 2 For ASA 3 and 4: Consider anesthesia and medical clearance. Also, for patients with a history of failed moderate sedation consider anesthesia. Airway Lungs Heart ASA score ASA 1: a normal healthy patient ASA 2: a patient with a mild systemic disease (mid diabetes, controlled hypertension, obesity ASA 3: a patient with a severe systemic disease that limits activity (angina, COPD, prior Myocardial infarction) ASA 4: a patient with an incapacitating disease that is a constant threat to life (CHF, renal failure) ASA 5: a moribund patient not expected to survive 24 hrs. (ruptured aneurysm) ASA 6: a declared brain- patient whose organs are being harvested. For emergent operations, add the letter E after the classification Mallampati Classification Grade 2 Sedation Plan Analgesia, Amnesia, Plan communicated to team members, Discussed options with patient/fam, Discussed risks with patient/fam The patient is an appropriate candidate to undergo the planned procedure, sedation, and anesthesia. The patient immediately re-assessed prior to indication. JENNIFFER BURNETT MD Dec 27, 2020 09:16
[2020-12-27] MEDS ORDERED: LIDOCAINE JELLY 2% 6 ML SYRINGE ONE (09:29)
[2020-12-27] MEDS ORDERED: HURRICAINE EXT TUBE (BENZOCAINE) ONE (09:29)
[2020-12-27 10:19] VITALS: BP 125/70
[2020-12-27 10:24] VITALS: BP 139/76
[2020-12-27 10:25] VITALS: BP 139/76
--- NOTE | 2020-12-27 10:34 | Anesthesia-General Post-Op ---
MAC Patient Condition Mental Status/LOC: Same as Preop Cardiovascular: Satisfactory Nausea/Vomiting: Absent Respiratory: Satisfactory Pain: Controlled Complications: Absent Post Op Complications Complications None Follow Up Care/Instructions Patient Instructions None needed. Anesthesiology Discharge Order Discharge Order Patient is doing well, no complaints, stable vital signs, no apparent adverse anesthesia problems. No complications reported per nursing. VIRGIL MARLOW CRNA Dec 27, 2020 10:34
[2020-12-27 10:55] VITALS: BP 156/84
[2020-12-27] MEDS ORDERED: ASPI-1238 PO (11:11)
[2020-12-27] MEDS ORDERED: OMEP20CA18 PO (11:11)
[2020-12-27 11:20] VITALS: BP 156/84
--- NOTE | 2020-12-27 17:09 | OPERATIVE REPORT ---
DATE OF SERVICE: EGD SUMMARY INDICATION FOR PROCEDURE: Nausea and epigastric pain. The patient was placed in the left lateral decubitus position. The endoscope was inserted in the oral cavity and under direct visualization, advanced into the esophagus. The endoscope was passed down the esophagus through the stomach and the second portion of the duodenum. Careful inspection was made as the endoscope was withdrawn. FINDINGS: Posterior pharynx, arytenoid aperture, true and false vocal folds and epiglottis were unremarkable. The proximal and mid esophagus were unremarkable. There is erythema without evidence for ulceration noted at the Z-line with findings suspicious for short segment Mac's. Biopsies were obtained and submitted for histopathology. Involvement was no more than 2 cm of the distal esophagus and no overt evidence for malignancy was identified. The cardia and fundus of the stomach were unremarkable. The antrum revealed some patchy areas of erythema. Biopsy was obtained and submitted for Helicobacter evaluation. The pylorus and pyloric channel were unremarkable. Patchy areas of duodenitis were noted involving the duodenal bulb and second portion of the duodenum as well without evidence for ulceration. Findings suspicious for short segment Mac's with LA grade A erosive esophagitis were noted and a small hiatal hernia. Findings were also compatible with antral gastritis and duodenitis without evidence for peptic ulcer disease. We will await histopathology report and initiate proton pump inhibitor therapy in the form of omeprazole 20 mg daily and requested the patient abstain from aspirin. Job ID: [id number] DocumentID: [id number] Dictated Date: 12/27/2020 10:20:01 Casting Associate Date: 12/27/2020 17:07:51 Dictated By: JENNIFFER BURNETT MD [facility]
== END 2020-12-27 11:20 | disposition home or self-care (01) ==
LOC: ENDO 08:26
PROVIDERS: ATTEND Internal Medicine
DX: K21.00 Gastro-esophageal reflux disease with esophagitis, without bleeding (principal); K29.50 Unspecified chronic gastritis without bleeding; K22.10 Ulcer of esophagus without bleeding; K31.89 Other diseases of stomach and duodenum; K44.9 Diaphragmatic hernia without obstruction or gangrene; E78.5 Hyperlipidemia, unspecified; F41.9 Anxiety disorder, unspecified; Z86.73 Personal history of transient ischemic attack (TIA), and cerebral infarction without residual deficits; Z79.899 Other long term (current) drug therapy
CPT/HCPCS: 88305

== ENCOUNTER → 2021-06-27 | Outpatient (CLI) | payer MEDICARE, OTHER ==
[~2021-06-27] MED LIST changes: +ASPI-1238 PO; +OMEP20CA18 PO
== END ==
LOC: CARD 10:00
PROVIDERS: ATTEND Internal Medicine Cardiovascular Disease
DX: I10 Essential (primary) hypertension (principal); I25.10 Atherosclerotic heart disease of native coronary artery without angina pectoris
CPT/HCPCS: 93306

== ENCOUNTER → 2022-06-23 | Outpatient (CLI) | payer MEDICARE, OTHER ==
[~2022-06-23] MED LIST changes: +CATHETER FLUSH 10 ML SYR IV PRN; +HOLD METFORMIN - RECEIVED CONTRAST 20 ML VIAL IV SCH; +IOHEXOL 350 MG/ML 100 ML (OMNIPAQUE 350) VIAL IV ONE; +NS 100 ML (IVPB) BAG IV ONE
[2022-06-23 08:25] LABS: CREATININE SERUM 1.5 MG/DL (0.60-1.30)
--- NOTE | 2022-06-23 09:14 | Diagnostic Imaging Report ---
EXAMINATION: CT angiography of the chest. TECHNIQUE: Contrast enhanced thin section helical images were obtained through the chest with intravenous contrast timed for the optimal opacification of the arterial structures per CTA protocol. Post-processing, reconstructions and interpretation of angiographic images of the vessels was performed. 3D MIP reconstructions were performed and reviewed. All CT scans use one or more of the following dose optimizing techniques: automated exposure control, MA and/or KvP adjustment based on a patient size and exam type, or iterative reconstruction. HISTORY: Thoracic aortic aneurysm. COMPARISON: None available. FINDINGS: Aortic root measures 4.2 x 4.2 x 4.1 cm from commissure to cusp. The maximal measurement from cusp to cusp is 4.4 cm. The max ascending aorta above the root is 3.8 x 3.7 cm. The arch descending aorta are normal in caliber. There is no edema or pneumonia. No pleural effusion. No pneumothorax. No suspicious nodules. There is no axillary or supraclavicular lymphadenopathy. There is no mediastinal lymphadenopathy. Heart size is normal. There are mild coronary artery calcifications. No pericardial effusion. Aorta is normal in caliber. Limited views of the upper abdomen are unremarkable. There are no suspicious osseous lesions. IMPRESSION: 1. 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 Dictated by: Dictated on workstation # [id number]
== END ==
LOC: RAD 08:15
PROVIDERS: ATTEND Internal Medicine Cardiovascular Disease
DX: I71.20 Thoracic aortic aneurysm, without rupture, unspecified (principal)
CPT/HCPCS: 36415; 71275; 82565; 84520

== ENCOUNTER 2022-12-30 06:37 | Outpatient (CLI) | payer MEDICARE, OTHER ==
[~2022-12-30] VITALS: Ht 172.7 cm; Wt 82.3 kg
[~2022-12-30 06:37] MED LIST changes: -CATHETER FLUSH 10 ML SYR IV PRN; -HOLD METFORMIN - RECEIVED CONTRAST 20 ML VIAL IV SCH; -IOHEXOL 350 MG/ML 100 ML (OMNIPAQUE 350) VIAL IV ONE; -NS 100 ML (IVPB) BAG IV ONE
== END 2022-12-30 08:56 | disposition home or self-care (01) ==
LOC: PREOP 06:37
PROVIDERS: ATTEND Internal Medicine
DX: Z01.818 Encounter for other preprocedural examination (principal)

== ENCOUNTER 2023-01-01 07:52 | Day surgery (SDC) | payer MEDICARE, OTHER ==
--- NOTE | 2022-12-29 12:07 | HISTORY AND PHYSICAL ---
DATE OF SERVICE: 01/01/2023 PANENDOSCOPY SUMMARY It has been 11 years since his last colonoscopy, so he is being set up for screening colonoscopy. He reports over the past 2 months he has been having epigastric discomfort, burning in nature, tends to occur an hour or two after meals. It does not wake him up at night. He does take a baby aspirin daily with a past history of TIA, but is also on omeprazole 20 mg daily. He underwent EGD evaluation 2 years ago, at which time he had evidence for gastritis as well as LA grade A erosive esophagitis. He has been on omeprazole since that time. He has had no associated weight loss. Denies melena or bright red blood per rectum. The patient is not aware of any family history for GI tract malignancy. PHYSICAL EXAMINATION: GENERAL: Reveals a white male, appeared to be in no acute distress. VITAL SIGNS: Weight is stable at 181.4 pounds, blood pressure 114/66. CHEST: Clear. CARDIOVASCULAR: Reveals regular rate and rhythm without murmur, S3, or S4. ABDOMEN: Soft, supple without mass, organomegaly, or tenderness. EXTREMITIES: Revealed no cyanosis, clubbing or edema. ASSESSMENT AND PLAN: The patient is being set up for screening colonoscopy as it has been over 11 years since his last colonoscopy, which did not reveal neoplasia at that time. He is being set up for diagnostic EGD due to epigastric pain with belching refractory to PPI therapy. He was told to hold his aspirin in the interim. Prep instructions were given and questions were answered. His previous endoscopy record and labs were reviewed. Job ID: [id number] DocumentID: [id number] Dictated Date: 12/24/2022 16:01:13 Mail Examiner Date: 12/24/2022 16:29:00 Dictated By: JENNIFFER BURNETT MD
[~2023-01-01] VITALS: Ht 173 cm; Wt 82.3 kg
[2023-01-01] MEDS ORDERED: LACTATED RINGERS 1,000 ML IV STA (07:59)
[2023-01-01] MEDS ORDERED: HURRICAINE EXT TUBE (BENZOCAINE) XX PRN (08:00)
[2023-01-01 08:15] VITALS: BP 157/86
--- NOTE | 2023-01-01 08:29 | Pre-Op Note & Conscious Sedat ---
Pre-Operative Progress Note Date H&P Reviewed: Jan 01, 2023 Time H&P Reviewed: 08:28 History & Physical: H&P Reviewed, Patient Examed, No changes noted Pre-Op Diagnosis: screening colon epigastric pain GERD Moderate Sedation PreProcedure ASA Score 2 Airway Lungs Heart ASA score ASA 1: a normal healthy patient ASA 2: a patient with a mild systemic disease (mid diabetes, controlled hypertension, obesity ASA 3: a patient with a severe systemic disease that limits activity (angina, COPD, prior Myocardial infarction) ASA 4: a patient with an incapacitating disease that is a constant threat to life (CHF, renal failure) ASA 5: a moribund patient not expected to survive 24 hrs. (ruptured aneurysm) ASA 6: a declared brain- patient whose organs are being harvested. For emergent operations, add the letter E after the classification Mallampati Classification Grade 2 Sedation Plan Analgesia, Amnesia, Plan communicated to team members, Discussed options with patient/fam, Discussed risks with patient/fam The patient is an appropriate candidate to undergo the planned procedure, sedation, and anesthesia. The patient immediately re-assessed prior to indication. JENNIFFER BURNETT MD Jan 01, 2023 08:29
[2023-01-01] MEDS ORDERED: MIDAZOLAM 2 MG/2 ML (VERSED) VIAL ONE (09:09)
[2023-01-01] MEDS ORDERED: PROPOFOL INJECTION 50 ML IV ONE (09:09)
[2023-01-01 09:45] VITALS: BP 104/58
[2023-01-01 09:50] VITALS: BP 88/55
[2023-01-01 09:55] VITALS: BP 82/54
--- NOTE | 2023-01-01 09:55 | Progress Note-Post Operative ---
Post-Procedure Note Physician (s)/Director Smb Sales (s) Physician JENNIFFER BURNETT MD Pre-Procedure Diagnosis Pre-Procedure Diagnosis: screening colon epigastric pain GERD Post-Procedure Diagnosis Post-operative diagnosis: The endoscope was inserted into the upper cavity and under direct visualization the esophagus is intubated. The endoscope was passed down the esophagus to stomach and the second portion of the duodenum. A careful inspection was made as the endoscope withdrawn. Findings the posterior pharynx epiglottis arytenoid aperture and true and false vocal folds were unremarkable on visual inspection. Proximal mid and distal esophagus were unremarkable. There was no evidence of erosive esophagitis the Z-line was distinct and at 39 cm from the incisor orifice. The cardia and the fundus the stomach were unremarkable. Mild antral erythema was present. No evidence for ulceration was noted. A biopsy was obtained and submitted for histopathology and Helicobacter evaluation. Pylorus and pyloric channel were unremarkable there is mild duodenal erythema without evidence for erosion or ulceration. This is confined to the duodenal bulb the second portion of the duodenum was unremarkable. : Assessment Mild gastritis and duodenitis confined to the duodenal bulb was present with an otherwise normal EGD. No evidence of erosive esophagitis was noted. Biopsies were obtained from the antrum and submitted for Helicobacter and histopathology Evaluation. We then proceeded with colonoscopy. Prior to undergoing colonoscopy digital rectal evaluation was performed. Anal center tone was normal and the perianal reflexes intact. There was no definitive prostate tissue palpable on digital inspection. No other abnormalities noted on digital exam of the anal canal or distal rectal vault. On visualization however the patient did have multiple grade 2 internal hemorrhoid complexes there was no evidence for external hemorrhoid. The endoscope was inserted into the rectum and under direct visualization advanced to the cecum. The cecum was identified by identification of the ileocecal valve and cecal strap. Photographic dictation obtained. Quality prep was good. Findings: Multiple grade 2 internal hemorrhoid complexes were noted with no evidence for external hemorrhoids. The rectum was otherwise unremarkable. The sigmoid colon was unremarkable. Present the proximal ascending colon was a 4 mm sessile adenomatous appearing polyp was photographed and biopsied and ablated with no subsequent blood loss with hot forceps. The splenic flexure transverse colon hepatic flexure ascending colon and cecum were unremarkable. A/P 1. Multiple grade 2 internal hemorrhoid complexes were noted. 2. One 4 mm sessile adenomatous polyp was biopsied and ablated without blood loss present in the proximal descending colon. No other abnormalities were appreciated. As long as there are no surprises on histopathology report considering age would not advocate Future surveillance colonoscopy. JENNIFFER BURNETT MD Jan 01, 2023 09:55
[2023-01-01 10:00] VITALS: BP 110/64
[2023-01-01 10:17] VITALS: BP 120/68
--- NOTE | 2023-01-01 10:21 | Anesthesia-General Post-Op ---
MAC Patient Condition Mental Status/LOC: Same as Preop Cardiovascular: Satisfactory Nausea/Vomiting: Absent Respiratory: Satisfactory Pain: Controlled Complications: Absent Post Op Complications Complications None Follow Up Care/Instructions Patient Instructions None needed. Anesthesiology Discharge Order Discharge Order Patient is doing well, no complaints, stable vital signs, no apparent adverse anesthesia problems. No complications reported per nursing. VIRGIL MARLOW CRNA Jan 01, 2023 10:21
== END 2023-01-01 10:25 | disposition home or self-care (01) ==
LOC: ENDO 07:52
PROVIDERS: ATTEND Internal Medicine
DX: Z12.11 Encounter for screening for malignant neoplasm of colon (principal); D12.4 Benign neoplasm of descending colon; K29.70 Gastritis, unspecified, without bleeding; K29.80 Duodenitis without bleeding; K64.1 Second degree hemorrhoids; K21.9 Gastro-esophageal reflux disease without esophagitis; Z79.82 Long term (current) use of aspirin; Z86.73 Personal history of transient ischemic attack (TIA), and cerebral infarction without residual deficits; Z28.310 Unvaccinated for COVID-19
CPT/HCPCS: 88305

== ENCOUNTER 2023-04-27 19:44 | Emergency (ER) | payer MEDICARE, OTHER ==
[~2023-04-27] VITALS: Ht 172.7 cm; Wt 80.0 kg
--- NOTE | 2023-04-27 20:09 | ED Headache ---
General Chief Complaint: Head/Cervical Problems Stated Complaint: ELEV BP/HEADACHE Nursing Triage Note: Pt presents with c/o headache pain that started around 1300 today. He states he normally doesn't have headaches, so he took his b/p and noted it was very high. Pt does have a hx of TIA in 2018. Source: patient Exam Limitations: no limitations History of Present Illness Date Seen by Provider: Apr 27, 2023 Time Seen by Provider: 20:09 Initial Comments Patient is a 77-year-old male who presents to the emergency room with a chief complaint of global headache gradual in onset around 1:00 today. He states he was working outside cleaning his boat. He noticed that he had a mild headache which progressively worsened. He normally does not get headaches, he did not take anything. He did check his blood pressure and noted it to be in the upper 190s. He does not have a history of hypertension. He does have a history of "TIA" in 2018. He believes it caused left-sided hemiparesis. It spontaneously resolved before he came to the emergency department. He was admitted. He is followed by primary care physician, Dr. Ahmadi. He is on daily baby aspirin as well as a low-dose statin. He denies any recent illnesses, no fevers, chills, productive cough, no other GI or complaints. No recent chest pressure, heaviness or tightness. No shortness of breath. No visual complaints no swallowing difficulty. He does not have any balance or coordination issues. Nothing makes the headache any better or any worse. On arrival his blood pressure is 194/97. Timing/Duration: 4-6 hours Severity/Quality: moderate, pressure Location: global Prior Headaches/Recent Trauma: no recent headache/trauma Associated Symptoms: denies symptoms Allergies and Home Medications Allergies Coded Allergies: No Known Drug Allergies (Unverified , 06/03/12) Patient Home Medication List Home Medication List Reviewed: Yes ALPRAZolam (Xanax Tablet) 0.25 Mg Tablet, 0.25 MG PO HS PRN for sleep, (Reported) Entered as Reported by: SAY MEMBRENO on 09/02/17 0951 Lisinopril (Lisinopril) 5 Mg Tablet, 5 MG PO DAILY Prescribed by: SANDHYA HILL on 04/27/23 590 Omeprazole (Omeprazole) 20 Mg Capsule.dr, 20 MG PO DAILY Prescribed by: JENNIFFER AHMADI on 12/27/20 1111 Rosuvastatin Calcium (Rosuvastatin Calcium) 10 Mg Tablet, 10 MG PO DAILY, (Reported) Entered as Reported by: ESTER AGUILERA on 12/23/20 1323 Review of Systems Review of Systems Constitutional: see HPI Eyes: No Symptoms Reported Ears, Nose, Mouth, Throat: no symptoms reported Respiratory: no symptoms reported Cardiovascular: no symptoms reported Gastrointestinal: no symptoms reported Genitourinary: no symptoms reported Musculoskeletal: no symptoms reported Skin: no symptoms reported Psychiatric/Neurological: Headache; Denies Numbness, Denies Paresthesia, Denies Pre-Existing Deficit, Denies Weakness Past Sxsildv-Vaawqm-Nieicu Hx Immunizations Up To Date Influenza Vaccine Up-to-Date: Yes; Up-to-Date First/Initial COVID19 Vaccinat: YES Second COVID19 Vaccination Rafal: YES Third COVID19 Vaccination Date: YES Seasonal Allergies Seasonal Allergies: No Past Medical History Surgeries: Yes (hernia sx) Abdominal Respiratory: No Cardiac: Yes (reveal heart monitor placed on 09/01/17) Neurological: Yes (TIA, tremors in hands) Reproductive Disorders: No Sexually Transmitted Disease: No Genitourinary: No Gastrointestinal: Yes (epigastric pain) Ulcer Musculoskeletal: No Endocrine: No HEENT: No Cancer: No Psychosocial: No Integumentary: No Blood Disorders: No Adverse Reaction/Blood Tranf: No Family Medical History No Pertinent Family Hx Physical Exam Vital Signs Vital Signs - First Documented 04/27/23 04/27/23 19:58 22:50 Temp 36.1 Pulse 60 Resp 16 B/P (MAP) 194/97 (129) Pulse Ox 96 O2 Delivery Room Air Capillary Refill : Less Than 3 Seconds Height, Weight, BMI Height: 5'8.00" Weight: 162lbs. 0.0oz. [id number]; 26.00 BMI Method:Stated General Appearance: WD/WN, no apparent distress HEENT: PERRL/EOMI, pharynx normal Neck: non-tender, supple, normal inspection Cardiovascular: regular rate, rhythm Respiratory: lungs clear, normal breath sounds, no respiratory distress, no accessory muscle use Gastrointestinal: non tender, soft Extremities: normal range of motion, non-tender, normal inspection, no pedal edema, normal capillary refill Psychiatric: alert, oriented x 3 Crainal Nerves: normal hearing, normal speech, PERRL Coordination/Gait: normal gait Motor/Sensory: no motor deficit, no sensory deficit, no pronator drift Skin: normal color, warm/dry Progress/Results/Core Measures Results/Orders Lab Results Laboratory Tests Test 04/27/23 20:38 04/27/23 20:57 Range/Units White Blood Count 6.5 4.3-11.0 10^3/uL Red Blood Count 4.02 L 4.30-5.52 10^6/uL Hemoglobin 12.5 L 13.3-17.7 g/dL Hematocrit 38 L 40-54 % Mean Corpuscular Volume 95 80-99 fL Mean Corpuscular Hemoglobin 31 25-34 pg Mean Corpuscular Hemoglobin Concent 33 32-36 g/dL Red Cell Distribution Width 11.6 10.0-14.5 % Platelet Count 213 130-400 10^3/uL Mean Platelet Volume 8.6 L 9.0-12.2 fL Immature Granulocyte % (Auto) 0 % Neutrophils (%) (Auto) 55 42-75 % Lymphocytes (%) (Auto) 33 12-44 % Monocytes (%) (Auto) 10 0-12 % Eosinophils (%) (Auto) 2 0-10 % Basophils (%) (Auto) 0 0-10 % Neutrophils # (Auto) 3.6 1.8-7.8 10^3/uL Lymphocytes # (Auto) 2.2 1.0-4.0 10^3/uL Monocytes # (Auto) 0.6 0.0-1.0 10^3/uL Eosinophils # (Auto) 0.1 0.0-0.3 10^3/uL Basophils # (Auto) 0.0 0.0-0.1 10^3/uL Immature Granulocyte # (Auto) 0.0 0.0-0.1 10^3/uL Sodium Level 139 135-145 MMOL/L Potassium Level 4.4 3.6-5.0 MMOL/L Chloride Level 107 98-107 MMOL/L Carbon Dioxide Level 23 21-32 MMOL/L Anion Gap 9 5-14 MMOL/L Blood Urea Nitrogen 17 7-18 MG/DL Creatinine 1.44 H 0.60-1.30 MG/DL Estimat Glomerular Filtration Rate 50 BUN/Creatinine Ratio 12 Glucose Level 92 70-105 MG/DL Calcium Level 9.5 8.5-10.1 MG/DL Corrected Calcium 9.3 8.5-10.1 MG/DL Total Bilirubin 0.5 0.1-1.0 MG/DL Aspartate Amino Transf (AST/SGOT) 25 5-34 U/L Alanine Aminotransferase (ALT/SGPT) 24 0-55 U/L Alkaline Phosphatase 54 40-136 U/L Total Protein 7.4 6.4-8.2 GM/DL Albumin 4.3 3.2-4.5 GM/DL Urine Color YELLOW Urine Clarity CLEAR Urine pH 7.0 5-9 Urine Specific Lindrith 1.020 1.016-1.022 Urine Protein NEGATIVE NEGATIVE Urine Glucose (UA) NEGATIVE NEGATIVE Urine Ketones NEGATIVE NEGATIVE Urine Nitrite NEGATIVE NEGATIVE Urine Bilirubin NEGATIVE NEGATIVE Urine Urobilinogen 0.2 < = 1.0 MG/DL Urine Leukocyte Esterase NEGATIVE NEGATIVE Urine RBC (Auto) TRACE H NEGATIVE Urine RBC NONE /HPF Urine WBC NONE /HPF Urine Squamous Epithelial Cells NONE /HPF Urine Crystals NONE /LPF Urine Bacteria NEGATIVE /HPF Urine Casts NONE /LPF Urine Mucus NEGATIVE /LPF Urine Culture Indicated NO My Orders Orders - SANDHYA HILL MD Ed Iv/Invasive Line Start (04/27/23 20:23) Cbc With Automated Diff (04/27/23 20:23) Comprehensive Metabolic Panel (04/27/23 20:23) Ekg Tracing (04/27/23 20:23) Ua Culture If Indicated (04/27/23 20:23) Acetaminophen Tablet (Acetaminophen Ta (04/27/23 20:30) Ns Iv 1000 Ml (Sodium Chloride 0.9%) (04/27/23 20:23) Ketorolac Injection (Toradol Injection) (04/27/23 21:45) Medications Given in ED Current Medications Medications Dose Ordered Sig/Farhan Route Start Time Stop Time Status Last Admin Dose Admin Acetaminophen 1,000 mg ONCE ONCE PO 04/27/23 20:30 04/27/23 20:31 DC 04/27/23 20:51 1,000 MG Ketorolac Tromethamine 10 mg ONCE ONCE IVP 04/27/23 21:45 04/27/23 21:46 DC 04/27/23 22:18 10 MG Vital Signs/I&O 04/27/23 04/27/23 19:58 22:50 Temp 36.1 Pulse 60 60 Resp 16 16 B/P (MAP) 194/97 (129) 167/88 Pulse Ox 96 O2 Delivery Room Air Blood Pressure Mean: 129 Progress Progress Note #1: Time: 21:34 Progress Note Patient seen and evaluated by me. Evaluation today includes physical exam, CBC, Chem-12, EKG. Pertinent physical exam findings well-developed well-nourished male in no acute distress. Normal mentation, normal neuroexam, regular heart rhythm, clear lungs, benign abdomen. Quite hypertensive 194/97, not tachycardic or hypoxic. Afebrile. Differential diagnosis based on history and physical exam, dehydration, new onset essential hypertension, hypertensive urgency Labs independently reviewed and interpreted by me. His CBC is completely normal. His chemistry is completely normal other than a mildly increased creatinine at 1.44. His EKG shows no evidence of ST segment change, ectopy. Normal intervals. He does have Q waves in leads III and aVF. Patient was treated with 1 g of acetaminophen in the emergency department was put no relief of his headache. He was also given a liter of normal saline. I did discuss patient presentation and exam with his primary care physician, Dr. Ahmadi. He recommended low-dose lisinopril at 5 mg daily. Since I did give him a liter of fluids we will go ahead and give him 10 mg of Toradol. Continue to monitor. Last blood pressure as of 2158 165/83. Progress Note #2: Time: 22:48 Progress Note After 10mg Toradol, asymptommatic. BP 167/88. encouraged him to drink fluids and start the low dose Lisinopril. Will re-check with Dr Ahmadi. Patient is improved at discharge. Initial ECG Impression Date: Apr 27, 2023 Initial ECG Impression Time: 21:03 Initial ECG Rate: 60 Initial ECG Rhythm: Normal Sinus Initial ECG Intervals: Normal Comment Q wave lead III and aVF; no ectopy; no ST segment change Departure Communication (Admissions) Time/Spoke to Consulting Phy: 21:[address] Ahmadi - patient's PCP - low dose Lisinopril (5mg) daily will follow up in the office Impression Primary Impression: Headache Qualified Codes: R51.9 - Headache, unspecified Additional Impression: High blood pressure Qualified Codes: I10 - Essential (primary) hypertension Disposition: HOME, SELF-CARE Condition: Improved Departure-Patient Inst. Referrals: JENNIFFER AHMADI MD (PCP/Family) Primary Care Physician Patient Instructions: Headache, Adult ED, High Blood Pressure ED Scripts Lisinopril (Lisinopril) 5 Mg Tablet 5 MG PO DAILY for 14 Days, #14 TAB Prov: SANDHYA HILL MD 04/27/23 SANDHYA HILL MD Apr 27, 2023 20:09
[2023-04-27] MEDS ORDERED: NS IV 1000 ML 1,000 ML IV STA (20:23)
[2023-04-27] MEDS ORDERED: ACETAMINOPHEN 500 MG TABLET PO ONE (20:30)
[2023-04-27 20:45] LABS: BASOPHILS % (AUTO) 0 % (0-10); EOSINOPHILS # (AUTO) 0.1 10^3/uL (0.0-0.3); EOSINOPHILS % (AUTO) 2 % (0-10); HEMATOCRIT 38 % (40-54); HEMOGLOBIN 12.5 g/dL (13.3-17.7); LYMPHOCYTES # (AUTO) 2.2 10^3/uL (1.0-4.0); LYMPHOCYTES % (AUTO) 33 % (12-44); MEAN CORPUSCULAR HEMOGLOBIN 31 pg (25-34); MEAN CORPUSCULAR HGB CONC 33 g/dL (32-36); MEAN CORPUSCULAR VOLUME 95 fL (80-99); MEAN PLATELET VOLUME 8.6 fL (9.0-12.2); MONOCYTES # (AUTO) 0.6 10^3/uL (0.0-1.0); MONOCYTES % (AUTO) 10 % (0-12); NEUTROPHILS # (AUTO) 3.6 10^3/uL (1.8-7.8); NEUTROPHILS % (AUTO) 55 % (42-75); PLATELET COUNT 213 10^3/uL (130-400); WHITE BLOOD COUNT 6.5 10^3/uL (4.3-11.0)
[2023-04-27 21:01] LABS: ALBUMIN 4.3 GM/DL (3.2-4.5); BILIRUBIN,TOTAL 0.5 MG/DL (0.1-1.0); CALCIUM 9.5 MG/DL (8.5-10.1); CREATININE SERUM 1.44 MG/DL (0.60-1.30); POTASSIUM 4.4 MMOL/L (3.6-5.0); TOTAL PROTEIN 7.4 GM/DL (6.4-8.2)
[2023-04-27 21:14] LABS: CLARITY,URINE CLEAR; COLOR,URINE YELLOW; GLUCOSE, URINE (UA) NEGATIVE (NEGATIVE); KETONES,URINE NEGATIVE (NEGATIVE); PROTEIN,URINE NEGATIVE (NEGATIVE)
[2023-04-27 21:15] LABS: BILIRUBIN,URINE NEGATIVE (NEGATIVE); LEUKOCYTE ESTERASE ,URINE NEGATIVE (NEGATIVE); NITRITE,URINE NEGATIVE (NEGATIVE)
[2023-04-27 21:17] LABS: BACTERIA,URINE NEGATIVE /HPF
[2023-04-27] MEDS ORDERED: KETOROLAC INJ 30 MG/ML VIAL IVP ONE (21:45)
[2023-04-27] MEDS ORDERED: LISI5TAB20 PO (21:56)
[2023-04-27 22:50] VITALS: BP 167/88
== END 2023-04-27 22:50 | disposition home or self-care (01) ==
LOC: EDUNIT# 19:44 → ER 19:47
DX: I10 Essential (primary) hypertension (principal); G45.9 Transient cerebral ischemic attack, unspecified; Z79.82 Long term (current) use of aspirin; Z79.899 Other long term (current) drug therapy
CPT/HCPCS: 36415; 80053; 81000; 85025; 93005